=== PATIENT | male | born 1985 | race Caucasian/White ===

== ENCOUNTER 2023-03-10 05:46 | Outpatient (CLI) | payer BC, SELFPAY | END 2023-03-10 05:47 | disposition home or self-care (01) | LOC: AMB 03-11 18:38 | PROVIDERS: Visit Provider Family Medicine | DX: R10.9 Unspecified abdominal pain (principal) | CPT/HCPCS: A0425; A0427 ==

== ENCOUNTER 2023-03-10 06:13 | Inpatient (IN) | payer BC, SELFPAY ==
[2023-03-10] VITALS (27 sets, daily range): BP systolic 131–142; BP diastolic 83–101; PULSE 58–104; RESP 16–20; TEMP 36.7–37.1; O2SAT 91–100; BMI 27.5; BMI 28.4
--- NOTE | 2023-03-10 06:30 | CRLHL7_ITS ---
For Patients: As a result of the Century Cures Act, medical imaging exams and procedure reports are released immediately into your electronic medical record. You may view this report before your referring provider. If you have questions, please contact your health care provider. INDICATION: ACUTE PERIUMBILICAL ABD PAIN. N/V TECHNIQUE: CT abdomen and pelvis with 79 cc Isovue 370. IV contrast. COMPARISON: None. FINDINGS: The liver is normal in size, shape and attenuation. Cholelithiasis noted. No CBD dilatation. Mild intrahepatic biliary duct dilation. The spleen and adrenal glands are within normal limits. The kidneys are unremarkable. No hydronephrosis. Mild diffuse bladder wall thickening. Moderate to severe peripancreatic inflammation surrounding the majority of the pancreas, compatible with acute pancreatitis. No discrete evidence of hypoenhancing pancreatic parenchymal tissue. Inflammation/fluid surrounding the proximal duodenum and greater curvature of the stomach which likely relates to acute pancreatitis inflammatory fluid. No evidence of rim enhancing fluid collection. No evidence of bowel obstruction. Unremarkable appearing appendix. No evidence of free air. Pelvic organs are unremarkable. The lower chest is unremarkable. IMPRESSION: Moderate to severe peripancreatic inflammation surrounding the majority of the pancreas, compatible with acute pancreatitis. No discrete evidence of hypoenhancing pancreatic parenchymal tissue. Inflammation/fluid surrounding the proximal duodenum and greater curvature of the stomach which likely relates to acute pancreatitis inflammatory fluid. No evidence of rim enhancing fluid collection. Cholelithiasis noted. No CBD dilatation. Mild intrahepatic biliary duct dilation. If there is clinical concern for choledocholithiasis consider MRCP. Mild bladder wall thickening. Recommend correlation with urinalysis if there is concern for cystitis. Please note that all CT scans at this facility use dose modulation, iterative reconstruction, and/or weight-based dosing when appropriate to reduce radiation dose to as low as reasonably achievable. Dictated by Lm Cristina MD @ 03/10/2023 7:32:47 AM (Electronically Signed)
--- NOTE | 2023-03-10 06:36 | ED_ITS ---
HPI - Abdominal Pain General Time Seen by Provider: 06:36 Date Seen: 03/10/23 Chief Complaint: Abdominal Pain Stated Complaint: Vomiting Time Seen by Provider: 03/10/23 07:03 Source: patient and RN notes reviewed Mode of arrival: ambulatory Limitations: no limitations History of Present Illness HPI narrative: Waylon is a very pleasant 37-year-old male previously healthy who comes to the emergency room for evaluation of abdominal pain. Patient notes that he did not feel well last night but did go to bed. He awoke with abdominal pain in the middle of the night that has become increasingly worse. Seems to be around his periumbilical area. He denies that it radiates to the back into the scrotum or anywhere else. He notes that the pain is so intense that he broke out into a sweat and even had an episode of vomiting. This is never happened to him before. He denies diarrhea or constipation or history of abdominal surgeries. He has not had any ill contacts. Denies bulging or hernia like symptoms in the past. EMS was called and patient did receive 50 of fentanyl and Zofran. He notes that the pain is mildly improved. With the exception of mother having a history of pancreatitis, no other relatives have GI issues. Related Data Allergies Allergy/AdvReac Type Severity Reaction Status Date / Time amphetamine [From Adderall] Allergy Verified 03/10/23 07:14 dextroamphetamine Allergy Verified 03/10/23 07:14 [From Adderall] Review of Systems Status of ROS Reports: 10 or more systems reviewed and unremarkable except as noted in History and below Const Denies: fever, chills, change in weight or fatigue ENMT Denies: difficulty swallowing Cardio Denies: chest pain, swelling of feet/ankles, lightheadedness or shortness of breath with exertion Resp Denies: shortness of breath or cough GI Reports: abdominal pain, nausea and vomiting; Denies: diarrhea, constipation, difficulty swallowing or blood in stool Denies: painful urination, urinary frequency, urinary urgency or blood in urine Musculo Denies: back pain or extremity pain Neuro Denies: weakness in extremities Endo Denies: fatigue PFSH PFSH Social History Smoking Status: Former smoker Do you use any of these nicotine containing products: None Second hand tobacco smoke exposure: No How often do you have a drink containing alcohol: 2-3 times a week AUDIT-C Alcohol total score: 3 Non-prescribed substance use: marijuana (any form) Exam Narrative: Exam Narrative: Alert and oriented. Diaphoretic at this time. Very guarded in movement. Moderate distress. Heart with bradycardic rate and normal rhythm. Lungs are clear. Abdomen is with absent bowel sounds. Abdomen is tender in the periumbilical area. Abdomen is firm in this area. No pain with palpation over right lower quadrant right upper quadrant. No evidence of bulging in the umbilicus or groin. Const: Vital Signs, click to edit/add: Vital Signs - 24 hr 03/10/23 06:18 03/10/23 06:41 03/10/23 06:45 Temperature 98.8 F Pulse Rate 72 76 Pulse Rate [Left P ulse Oximeter] 58 L Respiratory Rate 18 Blood Pressure Blood Pressure [Ri ght Upper Arm] 142/101 H Pulse Oximetry 100 98 99 Oxygen Delivery Me thod Room Air 03/10/23 07:09 03/10/23 07:15 03/10/23 07:30 Temperature Pulse Rate 76 72 77 Pulse Rate [Left P ulse Oximeter] Respiratory Rate Blood Pressure Blood Pressure [Ri ght Upper Arm] Pulse Oximetry 99 98 95 Oxygen Delivery Me thod 03/10/23 07:45 03/10/23 07:54 03/10/23 08:00 Temperature Pulse Rate 79 73 74 Pulse Rate [Left P ulse Oximeter] Respiratory Rate Blood Pressure 134/95 H Blood Pressure [Ri ght Upper Arm] Pulse Oximetry 96 98 96 Oxygen Delivery Me thod 03/10/23 08:01 03/10/23 08:15 Temperature Pulse Rate 79 81 Pulse Rate [Left P ulse Oximeter] Respiratory Rate Blood Pressure 139/93 H Blood Pressure [Ri ght Upper Arm] Pulse Oximetry 97 96 Oxygen Delivery Me thod Documenting provider has reviewed patient's vital signs: yes Course Course ED Course: Differential diagnosis includes but is not limited to small-bowel obstruction, incarcerated hernia, enteritis, ileus, appendicitis, Patient will undergo abdominal CT with contrast as well as lab draw to include CBC, comprehensive, lactate, CRP. Reevaluation(s) Reevaluation #1: Patient had increasing abdominal pain and thus Dilaudid 0.5 mg IV is given with good pain relief. Vital Signs Vital signs: Initial Vital Signs Temperature 98.8 F 03/10/23 06:18 Temperature Source Oral 03/10/23 06:18 Pulse Rate 58 L 03/10/23 06:18 Respiratory Rate 18 03/10/23 06:18 Blood Pressure 142/101 H 03/10/23 06:18 Blood Pressure Mean 114 H 03/10/23 06:18 Blood Pressure Position Sitting 03/10/23 06:18 Pulse Oximetry 100 03/10/23 06:18 Oxygen Delivery Method Room Air 03/10/23 06:18 Vital Signs Temperature 98.8 F 03/10/23 06:18 Pulse Rate 58 L 03/10/23 06:18 Respiratory Rate 18 03/10/23 06:18 Blood Pressure 142/101 H 03/10/23 06:18 Pulse Oximetry 100 03/10/23 06:18 Oxygen Delivery Method Room Air 03/10/23 06:18 Temperature 98.8 F 03/10/23 06:18 Pulse Rate 81 03/10/23 08:15 Respiratory Rate 18 03/10/23 06:18 Blood Pressure 139/93 H 03/10/23 08:01 Pulse Oximetry 96 03/10/23 08:15 Oxygen Delivery Method Room Air 03/10/23 06:18 MDM - Abdominal Pain MDM Narrative Medical decision making narrative: 1. Pancreatitis-patient noted to have CT confirmed pancreatitis in the setting of elevated liver function test. Patient's pain improved at this time on Dilaudid. He is also received 1 L of normal saline and a 2 L will be ordered at this time. Ultrasound pending to ascertain appearance of common bile duct gallbladder and cystic duct. If reassuring patient will be admitted to [facility]. If evidence of common bile duct stone patient will need to be referred to tertiary care for ERCP. Patient has no history of significant alcohol use known cholelithiasis or history of pancreatitis. His mother reports that she had idiopathic pancreatitis that was significant and caused her multiple and prolonged hospitalizations. 2. Hyperkalemia 5.8: At this time I suspect hemolysis and I am asking lab to come and draw a 2nd sample. 2. Disposition-this patient will be signed out to my partner Dr. Meng for review of ultrasound report and disposition. Medical Records Medical records narrative: No records available for review Lab Data Attestation: I reviewed the patient's lab results. Labs: Lab Results 03/10/23 03/10/23 Range/Units 06:37 08:20 WBC 13.79 H (4.50-11.00) K/uL RBC 5.33 (4.30-5.90) m/uL Hgb 16.5 (13.5-17.5) gm/dL Hct 48.6 (37.0-53.0) % MCV 91 (80-100) fL MCH 31 (26-34) pg MCHC 34 (32-36) gm/dL RDW Coeff of Vicky 12.2 (11.5-15.5) % Plt Count 244 (140-440) K/uL Neut % (Auto) 79.5 H (42.0-72.0) % Lymph % (Auto) 12.0 L (20-44) % [place] % (Auto) 6.7 (0.0-11.0) % Eos % (Auto) 0.9 (0.0-7.0) % Baso % (Auto) 0.1 (0.0-3.0) % Neut # (Auto) 11.00 H (1.7-7.0) K/uL Lymph # (Auto) 1.70 (0.90-2.90) K/uL [place] # (Auto) 0.90 (0.00-0.90) K/UL Eos # (Auto) 0.10 (0.00-0.50) K/uL Baso # (Auto) 0.00 (0.00-0.30) K/uL Abs Immat Gran (auto) 0.10 (0.00-0.30) K/uL Imm/Tot Granulo (auto) 0.8 % Sodium 140 (135-149) mmol/L Potassium 5.8 H (3.6-5.1) mmol/L Chloride 105 (96-114) mmol/L Carbon Dioxide 28 (20-32) mmol/L Anion Gap 7 (7-15) mEq/L BUN 20 (5-24) mg/dL Creatinine 1.0 (0.5-1.5) mg/dL Estimated Creat Clear 84.69 Estimated GFR 99 ml/min Glucose 167 H (60-115) mg/dL Lactate 1.4 (0.5-1.9) mmol/L Calcium 9.9 (8.4-10.6) mg/dL Total Bilirubin 2.5 H (0.1-1.5) mg/dL AST 863 H (12-35) U/L ALT 623 H (4-50) U/L Alkaline Phosphatase 130 (40-150) U/L C-Reactive Protein 0.8 (0.5-1.0) mg/dL Total Protein 7.3 (6.0-8.3) g/dL Albumin 4.3 (3.3-5.0) g/dL Urine Color Yellow (Yellow) Urine Appearance Clear (Clear) Urine pH 8.0 (5.0-8.5) Ur Specific [place] 1.015 (1.000-1.030) Urine Protein Negative (Negative) Urine Glucose (UA) Negative (Negative) Urine Ketones Negative (Negative) Urine Blood Negative (Negative) Urine Nitrite Negative (Negative) Urine Bilirubin Negative (Negative) Urine Urobilinogen 0.2 (0.2-1.0) Ur Leukocyte Esterase Negative (Negative) Urine RBC 0-2 (0-2) Urine WBC 0-2 (0-5) Ur Squamous Epith Cells None (None-Few) Urine Bacteria None (None) Imaging Data CT scan - abdomen: Attestation: I have reviewed the pertinent imaging results. Discharge Plan Discharge Follow Up/Referrals: Provider,Not a Local [Primary Care Provider] -
[2023-03-10] MEDS: 0.9 % SODIUM CHLORIDE 1000 ml 1,000 ML IV ×2 (06:38→08:57)
[2023-03-10 06:41] LABS: Lactate* 1.4 mmol/L (0.5-1.9)
[2023-03-10 06:48] LABS: Basophils Percent Auto 0.1 % (0.0-3.0); Eosinophils Percent Auto 0.9 % (0.0-7.0); Hematocrit 48.6 % (37.0-53.0); Hemoglobin* 16.5 gm/dL (13.5-17.5); Immature Granulocytes Pct Auto 0.8 %; Mean Corpuscular HGB Conc 34 gm/dL (32-36); Mean Corpuscular Hemoglobin 31 pg (26-34); Mean Corpuscular Volume 91 fL (80-100); Monocytes Percent Auto 6.7 % (0.0-11.0); Neutrophils Percent Auto 79.5 % (42.0-72.0); Platelet Count* 244 K/uL (140-440); RDW Coefficient of Variation % 12.2 % (11.5-15.5); Red Blood Count 5.33 m/uL (4.30-5.90); White Blood Count* 13.79 K/uL (4.50-11.00)
[2023-03-10 06:56] LABS: Slide Review Reflex No
[2023-03-10 07:21] LABS: Albumin* 4.3 g/dL (3.3-5.0); Chloride* 105 mmol/L (96-114); Sodium* 140 mmol/L (135-149)
[2023-03-10 07:22] LABS: Potassium* 5.8 mmol/L (3.6-5.1)
[2023-03-10 07:24] LABS: Bilirubin Total* 2.5 mg/dL (0.1-1.5); Est. Creatinine Clearance* 84.69; Estimated Glomerular Filt Rate 99 ml/min
[2023-03-10 07:25] LABS: Alanine Aminotransferase* 623 U/L (4-50); Alkaline Phosphatase* 130 U/L (40-150); Blood Urea Nitrogen* 20 mg/dL (5-24); Calcium* 9.9 mg/dL (8.4-10.6); Carbon Dioxide* 28 mmol/L (20-32); Glucose* 167 mg/dL (60-115); Total Protein* 7.3 g/dL (6.0-8.3)
[2023-03-10] MEDS: HYDROmorphone 0.5 mg/0.5 ml inj IVP ×8 (07:25→21:42)
[2023-03-10 07:27] LABS: C Reactive Protein* 0.8 mg/dL (0.5-1.0)
[2023-03-10 07:32] LABS: Anion Gap 7 mEq/L (7-15); Aspartate Amino Transferase* 863 U/L (12-35)
--- NOTE | 2023-03-10 08:04 | ED.NURSE ---
patient is feeling better after having pain medication rated at 5/10 scale and is wanting to rest. patient stated pain is center of abdomen and feels a little bloated/distended. had a bowel movement this am and was normal for patient with little straining otherwise not a problem.
--- NOTE | 2023-03-10 08:17 | CRLHL7_ITS ---
For Patients: As a result of the Century Cures Act, medical imaging exams and procedure reports are released immediately into your electronic medical record. You may view this report before your referring provider. If you have questions, please contact your health care provider. INDICATION: PANCREATITIS, ELEVATED LFTS AND BILIRUBIN TECHNIQUE: Ultrasound abdomen limited. Sonographic images of the right upper quadrant were obtained using barragan-scale and color Doppler images. COMPARISON: Same-day CT abdomen pelvis. FINDINGS: Liver: Normal in size and echotexture. No suspicious masses. No intrahepatic biliary dilatation. Gallbladder: Cholelithiasis noted. The gallbladder wall is edematous and thickened measuring 0.5 cm. Positive ultrasonographic Bergman`s sign. Common bile duct: 5 mm. Pancreas: Pancreatic parenchyma appears edematous. Right kidney: Normal in size. Normal echotexture and cortex. No suspicious masses, stones, or hydronephrosis. Vasculature: Proximal abdominal aorta and IVC are unremarkable. IMPRESSION: 1. Pancreatic parenchyma appears edematous, compatible with acute pancreatitis better seen on same day CT. 2. Cholelithiasis noted. The gallbladder wall is edematous and thickened measuring 0.5 cm. Positive ultrasonographic Bergman`s sign. The findings may be reactive from adjacent pancreatitis but overall findings are concerning for acute cholecystitis. 3. No CBD dilatation. If there is concern for choledocholithiasis consider MRCP/ERCP. Dictated by Lm Cristina MD @ 03/10/2023 9:27:01 AM (Electronically Signed)
[2023-03-10 08:31] LABS: Appearance Urine Clear (Clear); Bilirubin Urine Negative (Negative); Blood Urine Negative (Negative); Color Urine Yellow (Yellow); Glucose Urine Negative (Negative); Ketones Urine Negative (Negative); Leukocyte Esterase Urine Negative (Negative); Nitrite Urine Negative (Negative); Protein Urine Negative (Negative); Specific Gravity Urine 1.015 (1.000-1.030); Urobilinogen Urine 0.2 (0.2-1.0)
[2023-03-10 08:40] LABS: RBC Urine 0-2 (0-2); WBC Urine 0-2 (0-5)
[2023-03-10 09:46] LABS: Potassium* 3.8 mmol/L (3.6-5.1)
--- NOTE | 2023-03-10 11:05 | ED.NURSE ---
report given to ernie BURGESS.
[2023-03-10 11:10] LABS: Lactate* 0.8 mmol/L (0.5-1.9)
[2023-03-10 11:26] LABS: Potassium* 4.3 mmol/L (3.6-5.1)
[2023-03-10 11:29] LABS: Bilirubin Direct* 0.1 mg/dL (0.0-0.5)
[2023-03-10] MEDS: LACTATED RINGERS 1000 ML 1,000 ML 125 ML IV ×2 (12:00→21:39)
--- NOTE | 2023-03-10 13:25 | PM.IMHP1 ---
Hospitalist- H&P: HPI History of Present Illness Time Seen by Provider: 11:30 Date Seen: 03/10/23 Chief complaint: Vomiting, abdominal pain Narrative: Waylon Lackey is a 37 year old man with steadily worsening abdominal pain since 7:00 p.m. 03/09/2023. Was able to sleep much of the night. By 4-5 in the morning on 03/10/2023 his complaint of abdominal pain is so extreme that he has not slept since, localizing his pain in epigastrium, nonradiating, associated with nausea and vomiting, profuse diaphoresis, no blood loss of any sort, no fevers or rigors. Denies jaundice or icterus. Normal bowel movements. No diarrhea. Denies dysuria, urgency, frequency, hematuria. No recent trauma or injury. Denies chest heaviness, pressure, tightness, or pain. Denies heartburn, dyspepsia, dysphagia, or odynophagia. Denies cough, dyspnea at rest, paroxysmal nocturnal dyspnea, orthopnea. Denies palpitation or chest fluttering. Denies syncope or near-syncope. Denies orthostasis, lightheadedness, vertigo. Denies any focal motor neurologic deficits. Denies hypoglycemic or hyperglycemic symptoms. Does not have diabetes. Drinks alcoholic beverages maybe 2-3 times per week. Does use marijuana periodically. History of tobacco smoking, no longer uses. Does not and has not used any corticosteroids. Review of Systems Status of ROS: Reports: 10 or more systems reviewed and unremarkable except as noted in History and below [facility] Medical History Marijuana use ?F12.90 - Cannabis use, unspecified, uncomplicated (ICD-10) History of tobacco use ?Z87.891 - Personal history of nicotine dependence (ICD-10) Attention deficit hyperactivity disorder (ADHD) ?F90.9 - Attention-deficit hyperactivity disorder, unspecified type (ICD-10) Social History Smoking Status: Former smoker Do you use any of these nicotine containing products: None Second hand tobacco smoke exposure: No How often do you have a drink containing alcohol: 2-3 times a week AUDIT-C Alcohol total score: 3 Non-prescribed substance use: marijuana (any form) Meds Home Medications and Allergies Home Medications Medication Instructions Recorded Confirmed Type cetirizine 10 mg tablet (24Hour 10 mg PO HS 03/10/23 03/10/23 History Allergy) loratadine 10 mg tablet 10 mg PO DAILY 03/10/23 03/10/23 History (Allerclear) methylphenidate HCl 36 mg 36 mg PO DAILY 03/10/23 03/10/23 History tablet,extended release 24 hr (Concerta) Allergies Allergy/AdvReac Type Severity Reaction Status Date / Time amphetamine [From Adderall] Allergy Verified 03/10/23 07:14 dextroamphetamine Allergy Verified 03/10/23 07:14 [From Adderall] Exam Narrative: Exam Narrative: I examined patient in his hospital room. By the time I see him he appears comfortable and in no acute distress. Vision and hearing are grossly normal. Alert and oriented to self, place, time, situation. Friendly, articulate, cooperative. No jaundice or icterus. No petechiae. Midline nasal septum. Dry buccal mucosa. Dentition in fair repair. Neck supple. Midline trachea. Normal thyroid. No JVD hepatojugular reflux. No head or neck lymphadenopathy. Lungs clear to auscultation without wheezing, rhonchi, or rales. Chest wall excursions are full. No CVA tenderness. Heart tones with regular rhythm, normal S1-S2, without murmur, gallop, or rub. PMI not laterally displaced. Abdomen with active bowel sounds, soft. Subjective discomfort to palpation over epigastrium. No guarding. Palpable pulses upper and lower extremities. No lower extremity edema. Capillary refill less than 3 seconds. Moves all 4 extremities. Independent transfer, station, and gait. Const: Vital Signs, click to edit/add: Vital Signs - 24 hr 03/10/23 06:18 03/10/23 06:41 03/10/23 06:45 Temperature 98.8 F Pulse Rate 72 76 Pulse Rate [Left P ulse Oximeter] 58 L Respiratory Rate 18 Blood Pressure Blood Pressure [Ri ght Upper Arm] 142/101 H Pulse Oximetry 100 98 99 Oxygen Delivery Me thod Room Air 03/10/23 07:09 03/10/23 07:15 03/10/23 07:30 Temperature Pulse Rate 76 72 77 Pulse Rate [Left P ulse Oximeter] Respiratory Rate Blood Pressure Blood Pressure [Ri ght Upper Arm] Pulse Oximetry 99 98 95 Oxygen Delivery Me thod 03/10/23 07:45 03/10/23 07:54 03/10/23 08:00 Temperature Pulse Rate 79 73 74 Pulse Rate [Left P ulse Oximeter] Respiratory Rate Blood Pressure 134/95 H Blood Pressure [Ri ght Upper Arm] Pulse Oximetry 96 98 96 Oxygen Delivery Me thod 03/10/23 08:01 03/10/23 08:15 03/10/23 08:49 Temperature Pulse Rate 79 81 71 Pulse Rate [Left P ulse Oximeter] Respiratory Rate Blood Pressure 139/93 H Blood Pressure [Ri ght Upper Arm] Pulse Oximetry 97 96 Oxygen Delivery Me thod 03/10/23 09:00 03/10/23 09:01 03/10/23 09:15 Temperature Pulse Rate 90 86 80 Pulse Rate [Left P ulse Oximeter] Respiratory Rate Blood Pressure 137/90 H Blood Pressure [Ri ght Upper Arm] Pulse Oximetry 96 96 97 Oxygen Delivery Me thod 03/10/23 09:30 03/10/23 09:31 03/10/23 09:45 Temperature Pulse Rate 81 76 97 Pulse Rate [Left P ulse Oximeter] Respiratory Rate Blood Pressure 142/94 H Blood Pressure [Ri ght Upper Arm] Pulse Oximetry 96 97 96 Oxygen Delivery Me thod 03/10/23 10:00 03/10/23 10:01 03/10/23 10:15 Temperature Pulse Rate 84 95 94 Pulse Rate [Left P ulse Oximeter] Respiratory Rate Blood Pressure 141/96 H Blood Pressure [Ri ght Upper Arm] Pulse Oximetry 97 97 97 Oxygen Delivery Me thod 03/10/23 10:26 03/10/23 10:28 Temperature 98.1 F Pulse Rate Pulse Rate [Left P ulse Oximeter] Respiratory Rate 20 Blood Pressure Blood Pressure [Ri ght Upper Arm] Pulse Oximetry Oxygen Delivery Me thod Documenting provider has reviewed patient's vital signs: yes Hospitalist - H&P: Result Labs Labs: Short CBC 03/10/23 Range/Units 06:37 WBC 13.79 H (4.50-11.00) K/uL Hgb 16.5 (13.5-17.5) gm/dL Hct 48.6 (37.0-53.0) % Plt Count 244 (140-440) K/uL BMP 03/10/23 03/10/23 03/10/23 06:37 09:25 10:54 Sodium 140 Potassium 5.8 H 3.8 4.3 Chloride 105 Carbon Dioxide 28 BUN 20 Creatinine 1.0 Glucose 167 H Calcium 9.9 Liver Function 03/10/23 03/10/23 Range/Units 06:37 10:54 Total Bilirubin 2.5 H (0.1-1.5) mg/dL Direct Bilirubin 0.1 (0.0-0.5) mg/dL AST 863 H (12-35) U/L ALT 623 H (4-50) U/L Alkaline Phosphatase 130 (40-150) U/L Albumin 4.3 (3.3-5.0) g/dL Urine 03/10/23 Range/Units 08:20 Urine Color Yellow (Yellow) Urine Appearance Clear (Clear) Urine pH 8.0 (5.0-8.5) Ur Specific [place] 1.015 (1.000-1.030) Urine Protein Negative (Negative) Urine Glucose (UA) Negative (Negative) Imaging CT scan of abdomen and pelvis: Attestation: I have reviewed the pertinent imaging results. Radiologist's impression: IMPRESSION: Moderate to severe peripancreatic inflammation surrounding the majority of the pancreas, compatible with acute pancreatitis. No discrete evidence of hypoenhancing pancreatic parenchymal tissue. Inflammation/fluid surrounding the proximal duodenum and greater curvature of the stomach which likely relates to acute pancreatitis inflammatory fluid. No evidence of rim enhancing fluid collection. Cholelithiasis noted. No CBD dilatation. Mild intrahepatic biliary duct dilation. If there is clinical concern for choledocholithiasis consider MRCP. Mild bladder wall thickening. Recommend correlation with urinalysis if there is concern for cystitis. US - abdomen: Attestation: I have reviewed the pertinent imaging results. Radiologist's impression: IMPRESSION: 1. Pancreatic parenchyma appears edematous, compatible with acute pancreatitis better seen on same day CT. 2. Cholelithiasis noted. The gallbladder wall is edematous and thickened measuring 0.5 cm. Positive ultrasonographic Bergman`s sign. The findings may be reactive from adjacent pancreatitis but overall findings are concerning for acute cholecystitis. 3. No CBD dilatation. If there is concern for choledocholithiasis consider MRCP/ERCP. Assessment and Plan Assessment and plan (1) Acute gallstone pancreatitis: Status: Acute (2) Acute cholecystitis due to biliary calculus: Status: Acute (3) Dehydration: Status: Acute (4) Attention deficit hyperactivity disorder (ADHD): Status: Acute Plan 1. Reviewed impression with patient 2. Discuss with our emergency department physician who saw the patient 3. Will consult General surgery, whom our emergency department physician already spoke with 4. Admit for inpatient care 5. Conservative management for now, including NPO status, IV fluids, as needed analgesics, as needed antiemetics 6. Continue with his once daily dosing of methylphenidate (Concerta) 7. Monitor physiologic parameters and labs 8. Answered his questions to satisfaction. His father, mother, and stepfather are in the room when I speak with the patient. Patient asked that I speak with them as well. I update them. Answered their questions. All are satisfied. 9. Proceed as specified
[2023-03-10] MEDS: PIPERACILLIN/TAZOBACTAM 3.375 GM in 0.9 % SODIUM CHLORIDE Mini-bag 100 ML IVPB ×2 (13:41→19:09)
[2023-03-10] MEDS: PANTOPRAZOLE SODIUM 40 MG INJ IVP (13:49)
--- NOTE | 2023-03-10 15:36 | PC.NURSE ---
Patient up to the floor at 1110 accompanied by his parents. Patient is alert and oriented x4. C/o abd pain, rates this pain /. PRN dilauded administered w/relief see eMar. IV in left AC patent w/fluids running at 125 mls/hr. Patient is currently NPO. Patient ambulates independently to BR, cont of both bowels and bladder. LS clear to auscultation. VSS, patient is 98% on RA.
[2023-03-10] MEDS: OXYCODONE 5 MG TABLET PO (17:45)
[2023-03-10] MEDS: ONDANSETRON 2 MG/ML inj 4 MG IVP (19:03)
--- NOTE | 2023-03-10 19:47 | PC.NURSE ---
Patient alert and oriented. Ambulating in room independently. NPO at this time. Taking ice chips and sips of water with meds. Patient has rated pain in abdomen 5-8/10. Reported nausea and abdominal pain; was given PRN Dilaudid, PRN Zofran and an anti-nausea aromatherapy patch at this time.
[2023-03-10] MEDS: CETIRIZINE HCL 10 MG TABLET PO (21:42)
[2023-03-10] MEDS: SODIUM CHLORIDE 0.9 % (FLUSH) 10 ML SYRINGE 5 ML IVF (21:44)
[2023-03-10] MEDS: MELATONIN 3 MG TABLET PO (22:29)
[2023-03-11] VITALS (10 sets, daily range): BP systolic 131–156; BP diastolic 87–102; PULSE 98–123; RESP 16–20; TEMP 36.6–37.6; O2SAT 90–95
[2023-03-11] MEDS: PIPERACILLIN/TAZOBACTAM 3.375 GM in 0.9 % SODIUM CHLORIDE Mini-bag 100 ML IVPB ×4 (01:15→19:14)
[2023-03-11] MEDS: HYDROmorphone 0.5 mg/0.5 ml inj IVP ×4 (02:37→17:54)
[2023-03-11] MEDS: SODIUM CHLORIDE 0.9 % (FLUSH) 10 ML SYRINGE 5 ML IVF ×2 (02:38→09:29)
[2023-03-11] MEDS: OXYCODONE 5 MG TABLET PO ×3 (05:59→19:41)
[2023-03-11] MEDS: LACTATED RINGERS 1000 ML 1,000 ML 125 ML IV ×3 (06:01→20:33)
[2023-03-11 06:33] LABS: HCO3 VBG 26 mmol/L (21-28); PCO2 VBG 43 mmHG (40-50); PO2 VBG 42.2 mmHG (25-47); pH VBG 7.394 (7.32-7.43)
[2023-03-11 06:38] LABS: Basophils Percent Auto 0.1 % (0.0-3.0); Eosinophils Percent Auto 0.3 % (0.0-7.0); Hematocrit 45.5 % (37.0-53.0); Hemoglobin* 15.1 gm/dL (13.5-17.5); Immature Granulocytes Pct Auto 0.3 %; Lymphocytes Percent Auto 10.4 % (20-44); Mean Corpuscular HGB Conc 33 gm/dL (32-36); Mean Corpuscular Hemoglobin 31 pg (26-34); Mean Corpuscular Volume 93 fL (80-100); Monocytes Percent Auto 7.4 % (0.0-11.0); Neutrophils Percent Auto 81.5 % (42.0-72.0); Platelet Count* 213 K/uL (140-440); RDW Coefficient of Variation % 12.4 % (11.5-15.5); Red Blood Count 4.89 m/uL (4.30-5.90); White Blood Count* 11.77 K/uL (4.50-11.00)
[2023-03-11 06:50] LABS: Slide Review Reflex No
--- NOTE | 2023-03-11 06:58 | PC.NURSE ---
Shift note: Pt has been maintained on NPO. Complained of feeling nauseated at the start of the shift at 1900 and Zofran given. Has remained stable since except pain control. Pain level has been rated between 7 and 9. Deluded and oxycodone given to manage pain. Pt had concentrated urine (tea colored) about 550ml this morning. Alert and oriented. No fever noted. Pt had adequate sleep.
[2023-03-11 07:38] LABS: Albumin* 3.5 g/dL (3.3-5.0); Chloride* 106 mmol/L (96-114)
[2023-03-11 07:39] LABS: Sodium* 137 mmol/L (135-149)
[2023-03-11 07:40] LABS: Potassium* 4.1 mmol/L (3.6-5.1)
[2023-03-11 07:41] LABS: Creatinine* 0.8 mg/dL (0.5-1.5); Est. Creatinine Clearance* 105.86; Estimated Glomerular Filt Rate 117 ml/min
[2023-03-11 07:42] LABS: Alanine Aminotransferase* 321 U/L (4-50); Alkaline Phosphatase* 96 U/L (40-150); Anion Gap 8 mEq/L (7-15); Aspartate Amino Transferase* 164 U/L (12-35); Bilirubin Total* 1.8 mg/dL (0.1-1.5); Blood Urea Nitrogen* 12 mg/dL (5-24); Calcium* 8.9 mg/dL (8.4-10.6); Carbon Dioxide* 23 mmol/L (20-32); Cholesterol* 124 mg/dL (90-199); Glucose* 93 mg/dL (60-115); Phosphorus* 3.6 mg/dL (2.5-4.5); Total Protein* 6.3 g/dL (6.0-8.3); Triglycerides* 61 mg/dL (40-149)
[2023-03-11 07:43] LABS: HDL Cholesterol* 54 mg/dL (>=40); LDL Cholesterol Calculated 58 mg/dL (<100); Magnesium* 1.8 mg/dL (1.5-2.6)
[2023-03-11 07:45] LABS: C Reactive Protein* 6.8 mg/dL (0.5-1.0)
[2023-03-11 07:54] LABS: Lipase* 3452 U/L (23-300)
[2023-03-11] MEDS: PANTOPRAZOLE SODIUM 40 MG INJ IVP (09:28)
--- NOTE | 2023-03-11 15:16 | P.GSCN_ITS ---
History of Present Illness Consult details Date Seen: 03/11/23 Consult date: 03/11/23 Narrative: 37-year-old male was admitted to the hospital with pancreatitis and I was asked by Dr. Arriaga to see him in consultation. Patient states that night he developed periumbilical abdominal pain. He described it as stomach cramping. He took Tums but that did not help his pain. His pain was getting progressively worse and in the morning on Monday he asked his girlfriend to bring him to the hospital. patient had nausea and vomiting. He was not passing gas. Upon his workup he was found to have an elevated WBC of 13. His total bilirubin was 2.5 with direct bilirubin being normal. He had greatly elevated lipase at 60,835 with elevated AST and ALT of 863 and [address] An [address] CT was obtained that showed cholelithiasis with mild intrahepatic bile dilatation. His common bile duct was that to be normal. There was moderate to severe [place] pancreatic inflammation with some inflammation Near the duodenum and greater curvature of the stomach. Patient then had a gallbladder ultrasound that showed cholelithiasis with gallbladder wall of 5 mm. His common bile duct was normal at 5 mm. On this ultrasound there was no evidence of intrahepatic bile dilatation. Patient was admitted to the hospital. patient states that his pain has improved significantly compared to yesterday. He denies nausea or vomiting. Patient admits to drinking 9-10 alcoholic drinks per week on average. Review of Systems Narrative: General: no fevers HENT: no problems swallowing CV: difficult to take a deep breath due to pain. Resp: no cough GI: See above : no dysuria, no increased urinary frequency, no hematuria Psyche: History of ADHD [facility] Medical History (Updated 03/11/23 @ 15:21 by Danny Irizarry MD) Broken nose ?S02.2XXA - Fracture of nasal bones, initial encounter for closed fracture (ICD-10) Marijuana use ?F12.90 - Cannabis use, unspecified, uncomplicated (ICD-10) History of tobacco use ?Z87.891 - Personal history of nicotine dependence (ICD-10) Attention deficit hyperactivity disorder (ADHD) ?F90.9 - Attention-deficit hyperactivity disorder, unspecified type (ICD-10) Surgical History History of placement of ear tubes ?Z96.22 - Myringotomy tube(s) status (ICD-10) Social History (Updated 03/11/23 @ 15:21 by Danny Irizarry MD) Narrative: patient works in [employer] department and rarely does heavy lifting. What is your current living situation?: I presently have a place to live Problems where you live: no known problems Problems where you live details: no known problems In the past 12 months, utilities in danger of being shut off: no In past 12 months, lack of transportation kept you from medical appts, meetings, work, or getting things needed for daily living: no In the past 12 mos, have been you worried that your food would run out before you had money to buy more?: never true In the past 12 mos, the food you bought just didn't last and you didn't have money to buy more?: never true Highest level of school completed/degree received: some college, no degree Smoking Status: Former smoker Do you use any of these nicotine containing products: None Second hand tobacco smoke exposure: No How often do you have a drink containing alcohol: never AUDIT-C Alcohol total score: 0 Non-prescribed substance use: denies use Caffeine: No How often does anyone, including family, friends and others, physically hurt you : never How often does anyone, including family, friends and others, insult or talk down to you: never How often does anyone, including family, friends and others, threaten you with harm: never How often does anyone, including family, friends and others, scream or curse at you: never service: No Meds Home Medications and Allergies Home Medications Medication Instructions Recorded Confirmed Type cetirizine 10 mg tablet (24Hour 10 mg PO HS 03/10/23 03/10/23 History Allergy) loratadine 10 mg tablet 10 mg PO DAILY 03/10/23 03/10/23 History (Allerclear) methylphenidate HCl 36 mg 36 mg PO DAILY 03/10/23 03/10/23 History tablet,extended release 24 hr (Concerta) Allergies Allergy/AdvReac Type Severity Reaction Status Date / Time amphetamine [From Adderall] Allergy Verified 03/10/23 07:14 dextroamphetamine Allergy Verified 03/10/23 07:14 [From Adderall] Exam Narrative: Exam Narrative: General appearance: Alert, cooperative, and in no distress Pulmonary: Chest symmetric, lungs clear bilaterally Cardiovascular Heart: Regular rate and rhythm, S1, S2, no murmurs/rubs/gallops Gastrointestinal Abdominal: soft, not distended, Mildly tender to palpation in the right lower quadrant and more tender to palpation in epigastrium and right upper quadrant with positive Bergman sign. Skin: Normal skin color, texture, and turgor. No rashes or lesions. Psychiatric: Alert, cooperative, normal affect. Const: Vital Signs, click to edit/add: Vital Signs - 24 hr 03/10/23 19:00 03/10/23 23:00 03/10/23 23:00 Temperature 98.8 F 98.8 F Pulse Rate [Left P ulse Oximeter] 78 103 H Respiratory Rate 16 16 16 Blood Pressure [Ri ght Arm] 142/90 H 133/87 Pulse Oximetry 97 91 91 Oxygen Delivery Me thod Room Air Room Air Room Air 03/11/23 03:00 03/11/23 07:00 Temperature 98.5 F 98.7 F Pulse Rate [Left P ulse Oximeter] 98 98 Respiratory Rate 16 18 Blood Pressure [Ri ght Arm] 131/87 147/93 H Pulse Oximetry 92 94 Oxygen Delivery Me thod Room Air Room Air Results Labs Labs: Abnormal lab results 03/11/23 Range/Units 06:23 WBC 11.77 H (4.50-11.00) K/uL Neut % (Auto) 81.5 H (42.0-72.0) % Lymph % (Auto) 10.4 L (20-44) % Neut # (Auto) 9.60 H (1.7-7.0) K/uL Total Bilirubin 1.8 H (0.1-1.5) mg/dL AST 164 H (12-35) U/L ALT 321 H (4-50) U/L C-Reactive Protein 6.8 H (0.5-1.0) mg/dL Lipase 3452 H (23-300) U/L Diabetes panel 03/11/23 Range/Units 06:23 Sodium 137 (135-149) mmol/L Potassium 4.1 (3.6-5.1) mmol/L Chloride 106 (96-114) mmol/L Carbon Dioxide 23 (20-32) mmol/L BUN 12 (5-24) mg/dL Creatinine 0.8 (0.5-1.5) mg/dL Glucose 93 (60-115) mg/dL Calcium 8.9 (8.4-10.6) mg/dL AST 164 H (12-35) U/L ALT 321 H (4-50) U/L Alkaline Phosphatase 96 (40-150) U/L Total Protein 6.3 (6.0-8.3) g/dL Albumin 3.5 (3.3-5.0) g/dL Triglycerides 61 (40-149) mg/dL HDL Cholesterol 54 (>=40) mg/dL Calcium panel 03/11/23 Range/Units 06:23 Calcium 8.9 (8.4-10.6) mg/dL Phosphorus 3.6 (2.5-4.5) mg/dL Albumin 3.5 (3.3-5.0) g/dL Pituitary panel 03/11/23 Range/Units 06:23 Sodium 137 (135-149) mmol/L Potassium 4.1 (3.6-5.1) mmol/L Chloride 106 (96-114) mmol/L Carbon Dioxide 23 (20-32) mmol/L BUN 12 (5-24) mg/dL Creatinine 0.8 (0.5-1.5) mg/dL Glucose 93 (60-115) mg/dL Calcium 8.9 (8.4-10.6) mg/dL Adrenal panel 03/11/23 Range/Units 06:23 Sodium 137 (135-149) mmol/L Potassium 4.1 (3.6-5.1) mmol/L Chloride 106 (96-114) mmol/L Carbon Dioxide 23 (20-32) mmol/L BUN 12 (5-24) mg/dL Creatinine 0.8 (0.5-1.5) mg/dL Glucose 93 (60-115) mg/dL Calcium 8.9 (8.4-10.6) mg/dL Total Bilirubin 1.8 H (0.1-1.5) mg/dL AST 164 H (12-35) U/L ALT 321 H (4-50) U/L Alkaline Phosphatase 96 (40-150) U/L Total Protein 6.3 (6.0-8.3) g/dL Albumin 3.5 (3.3-5.0) g/dL All other labs normal. Assessment and Plan Assessment and plan (1) Acute cholecystitis due to biliary calculus: Status: Acute (2) Acute gallstone pancreatitis: Status: Acute Plan 37-year-old male admitted to the hospital with acute pancreatitis that is most likely due to gallstone pancreatitis And acute cholecystitis. I discussed with the patient and his mother my clinical findings, his laboratory and imaging findings. We discussed patient's severely elevated lipase and severe inflammation around he has pancreas found on the CT scan. Most of his inflammation is near the body and the tail of the pancreas. Patient's pain has significantly improved, although, on clinical exam he still has tenderness to palpation in epigastrium and right upper quadrant. I think if patient's labs continue to improve with his lipase being close to normal range, I would recommend proceeding with laparoscopic cholecystectomy. The procedure was discussed in detail. The risks associated procedure including infection, bleeding, injury to the common bile duct, injury to intra-abdominal organs, and the need for possible additional procedures were all discussed with the patient, and he agreed to proceed. Patient was asking whether it would be reasonable to discharge home and have surgery done in [place] near his home. I think it would be reasonable if patient continues to improve to send him home on antibiotics, however, it may delay definitive treatment of laparoscopic cholecystectomy. At this time patient would like to plan for laparoscopic cholecystectomy. If he changes his mind and would like to cancel it at the [facility], he will let us know. All questions were answered.
--- NOTE | 2023-03-11 15:32 | P.IMPN_ITS ---
Progress Note: A&P Assessment and plan (1) Acute cholecystitis due to biliary calculus: Problem details: IV antibiotics. If continued to improve plan cholecystectomy tomorrow with Dr. Irizarry Status: Acute (2) Acute gallstone pancreatitis: Problem details: Clinically much better. Continue to assess for common bile duct stone. Status: Acute Plan Continue in hospital for another day with probable surgery tomorrow. Time Spent With Patient Total time spent: Total time spent today is 45 minutes, 30 minutes in coordination of care and discussing with patient, girlfriend, mother, other providers plan of evaluation and management of gallstone pancreatitis and cholecystitis. Patient is from [place] and his considering returning there for surgery but does not think his insurance will cover that. We discussed options for surgery including location. Subjective Date Seen: 03/11/23 Interval history: 37-year-old male hospitalized with onset night of epigastric abdominal pain. Admitted with acute gallstone pancreatitis and acute cholecystitis. Patient reports feeling much better today compared to yesterday. No other significant health problems. Exam Narrative: Exam Narrative: He is alert and appears in no distress. Respirations are clear to auscultation. Cardiovascular: S1, S2, regular rate and rhythm. Abdomen: Bowel sounds are present. Abdomen is soft. He has moderate epigastric tenderness. No mass. Extremities without edema. Const: Vital Signs, click to edit/add: Vital Signs - 24 hr 03/10/23 19:00 03/10/23 23:00 03/10/23 23:00 Temperature 98.8 F 98.8 F Pulse Rate [Left P ulse Oximeter] 78 103 H Respiratory Rate 16 16 16 Blood Pressure [Ri ght Arm] 142/90 H 133/87 Pulse Oximetry 97 91 91 Oxygen Delivery Me thod Room Air Room Air Room Air 03/11/23 03:00 03/11/23 07:00 03/11/23 07:00 Temperature 98.5 F 98.7 F Pulse Rate [Left P ulse Oximeter] 98 98 Respiratory Rate 16 18 18 Blood Pressure [Ri ght Arm] 131/87 147/93 H Pulse Oximetry 92 94 Oxygen Delivery Me thod Room Air Room Air 03/11/23 07:00 03/11/23 11:00 Temperature 99.7 F H Pulse Rate [Left P ulse Oximeter] 109 H Respiratory Rate 18 Blood Pressure [Ri ght Arm] 156/102 H Pulse Oximetry 95 95 Oxygen Delivery Me thod Room Air Room Air Documenting provider has reviewed patient's vital signs: yes Labs Labs: Laboratory Results - last 24 hr 03/11/23 03/11/23 06:23 07:18 WBC 11.77 H RBC 4.89 Hgb 15.1 Hct 45.5 MCV 93 MCH 31 MCHC 33 RDW Coeff of Vicky 12.4 Plt Count 213 Neut % (Auto) 81.5 H Lymph % (Auto) 10.4 L [place] % (Auto) 7.4 Eos % (Auto) 0.3 Baso % (Auto) 0.1 Neut # (Auto) 9.60 H Lymph # (Auto) 1.20 [place] # (Auto) 0.90 Eos # (Auto) 0.00 Baso # (Auto) 0.00 Abs Immat Gran (auto) 0.00 Imm/Tot Granulo (auto) 0.3 VBG pH 7.394 VBG pCO2 43 VBG pO2 42.2 VBG HCO3 26 Sodium 137 Potassium 4.1 Chloride 106 Carbon Dioxide 23 Anion Gap 8 BUN 12 Creatinine 0.8 Estimated Creat Clear 105.86 Estimated GFR 117 Glucose 93 Lactate 1.0 Calcium 8.9 Phosphorus 3.6 Magnesium 1.8 Total Bilirubin 1.8 H Direct Bilirubin 0.0 AST 164 H ALT 321 H Alkaline Phosphatase 96 C-Reactive Protein 6.8 H Total Protein 6.3 Albumin 3.5 Triglycerides 61 Cholesterol 124 LDL Cholesterol, Calc 58 HDL Cholesterol 54 Lipase 3452 H Lab Acknowledgement Test Added
[2023-03-11] MEDS: ACETAMINOPHEN 325 MG TABLET 650 MG PO (15:58)
[2023-03-11] MEDS: LACTATED RINGERS 1000 ML 1,000 ML IV (16:58)
--- NOTE | 2023-03-11 18:56 | PC.NURSE ---
Patient alert and oriented. Ambulated with stand by assist of one. Ice chips given and tolerated well. Patient given PRN Oxycodone x1 and PRN Dilaudid x 3 for pain in his abdomen which was effective. Heart rate was elevated between 120-130 BPM and had low grade fever of 99.7. MD was updated and orders were given for an ECG. ECG shows NSR Tachycardia. Bolus of LR fluids given per MD order. PRN Tylenol was effective for elevated temperature. Recheck HR was 104. Recheck temp was 97.9.
[2023-03-11] MEDS: CETIRIZINE HCL 10 MG TABLET PO (21:06)
[2023-03-12] VITALS (30 sets, daily range): BP systolic 137–166; BP diastolic 82–110; PULSE 83–117; RESP 14–22; TEMP 36.5–37.7; O2SAT 90–97
[2023-03-12] MEDS: PIPERACILLIN/TAZOBACTAM 3.375 GM in 0.9 % SODIUM CHLORIDE Mini-bag 100 ML IVPB ×2 (01:09→07:39)
[2023-03-12] MEDS: OXYCODONE 5 MG TABLET PO (01:12)
--- NOTE | 2023-03-12 05:48 | PC.NURSE ---
Shift note: Pt has been on NPO pending the decision for surgery. Pain level has been minimal compared to yesterday. 1x PRN pain med requested. Cooperate with treatment and care. Vitally stable. Patient had adequate sleep.Independent in room.
[2023-03-12] MEDS: HYDROmorphone 0.5 mg/0.5 ml inj IVP ×3 (07:24→19:08)
[2023-03-12 07:32] LABS: Basophils Percent Auto 0.2 % (0.0-3.0); Eosinophils Percent Auto 0.5 % (0.0-7.0); Hematocrit 43.3 % (37.0-53.0); Hemoglobin* 14.6 gm/dL (13.5-17.5); Immature Granulocytes Pct Auto 0.2 %; Lymphocytes Percent Auto 8.7 % (20-44); Mean Corpuscular HGB Conc 34 gm/dL (32-36); Mean Corpuscular Hemoglobin 31 pg (26-34); Mean Corpuscular Volume 92 fL (80-100); Monocytes Percent Auto 7.3 % (0.0-11.0); Neutrophils Percent Auto 83.1 % (42.0-72.0); Platelet Count* 189 K/uL (140-440); RDW Coefficient of Variation % 11.9 % (11.5-15.5); Red Blood Count 4.73 m/uL (4.30-5.90); White Blood Count* 13.28 K/uL (4.50-11.00)
[2023-03-12 07:34] LABS: Slide Review Reflex No
[2023-03-12 07:47] LABS: Albumin* 3.4 g/dL (3.3-5.0)
[2023-03-12 07:50] LABS: Alkaline Phosphatase* 88 U/L (40-150); Aspartate Amino Transferase* 66 U/L (12-35); Bilirubin Total* 1.8 mg/dL (0.1-1.5); Lipase* 791 U/L (23-300); Total Protein* 6.5 g/dL (6.0-8.3)
[2023-03-12 07:51] LABS: Alanine Aminotransferase* 205 U/L (4-50)
[2023-03-12 08:07] LABS: C Reactive Protein* 23.8 mg/dL (0.5-1.0)
--- NOTE | 2023-03-12 08:41 | P.GSOP_ITS ---
Operative Note Pre-op diagnosis: 1. Gallstone pancreatitis. 2. Acute cholecystitis. Post-op diagnosis: Same Type of Procedure: 1. Laparoscopic cholecystectomy. Indications: 37-year-old male was admitted to the hospital with pancreatitis. Patient presented to emergency room with abdominal pain that was getting significantly more severe. He had nausea and vomiting. Upon his workup he was found to have minimally elevated WBC. His total bilirubin was elevated at 2.5 with normal direct bilirubin. He had transaminitis and lipase of 60,000. On abdominal CT patient had moderate to severe inflammation around the body and the tail of the pancreas with inflammation extending to his duodenum in the greater curvature of the stomach. He was found to have cholelithiasis. A gallbladder ultrasound was then obtained that showed cholelithiasis, gallbladder wall of 5 mm thick with normal common bile duct. Patient was managed conservatively. Clinically his abdominal pain was improving. His liver function tests were trending down and his lipase was trending down with today's value at 791. Given patient's clinical history, gallstone pancreatitis was at the top of differential. With his improving pancreatitis, a laparoscopic cholecystectomy was recommended. The procedure was discussed in detail. The risks associated procedure including infection, bleeding, injury to intra-abdominal organs, and injury to the common bile duct as well as possible need for future ERCP were all discussed with the patient, he agreed to proceed. Procedure Description: After discussing the risks and benefits of the procedure, the patient signed informed consent.? The operative site was marked and the patient was brought to the operating room and placed on the operating table in supine position.? Care was taken to pad the patient's pressure points.?? The patient was then intubated by anesthesia.?? The operative site was then prepped and draped in the usual sterile fashion.? A time-out was then performed. A 5-mm laparoscopy port was placed in the left upper quadrant guided by a 5-mm laparoscope placed into a translucent trochar.~ Passage through the layers of the abdominal wall was visualized with the laparoscope.~ A pneumoperitoneum was established. A 0-degree 5-mm laparoscope was advanced into the abdomen. The abdomen was briefly surveyed, and no adhesions were noted. A 10-mm port were placed supraumbilically and two more 5 mm ports were placed on the right under direct visualization by laparoscope. The camera was then changed to 10 mm 30- degree scope and placed into the abdomen through the 10 mm port. The left upper quadrant port entrance was examined and no injury to intra-abdominal organs was identified. The gallbladder was identified, the fundus grasped and retracted cephalad. Omentum was adherent to the gallbladder fundus and those omental adhesions were taken down with cautery. The infundibulum was grasped and retracted laterally, exposing the peritoneum overlying the triangle of [place]. This was then divided and exposed in a blunt fashion and with hook cautery. Common bile duct was not identified but care was taken not to injure it. The cystic duct was clearly identified and bluntly dissected circumferentially. Cystic artery was identified and tissues around it were dissected off. The cystic duct were clearly going into the gallbladder. The cystic duct was then doubly ligated with surgical clips on the patient's side and singly clipped on the gallbladder side and divided. A prominent cystic vein was located just medial to the cystic duct. This was clearly going into the gallbladder. The cystic vein was then similarly ligated with clips and divided as well. 5 mm clips barely went across the cystic duct. To avoid cystic duct bile leak I elected to place 0-0 PDS endoloop just proximal to the cystic duct stump clips. The gallbladder was dissected from the liver bed in retrograde fashion using hookcautery. A cystic artery was encountered medial to the gallbladder wrapped in peritoneum. This was clearly going into the gallbladder and terminating at the gallbladder fundus. This was circumferentially dissected with [place] dissector. It was clipped with two 5 mm clips on the patient's side and specimen side and divided between the clips. The gallbladder was placed into an Endo-Catch bag and removed through the supraumbilical incision. Surgical site was examined for bleeding. No bleeding was seen in the surgical field. The fascia of the supraumbilical incision was then closed with 0-0 vicryl using Juan Sade needle under direct visualization. Pneumoperitoneum was completely reduced after viewing removal of the trocars under direct vision. The skin was then closed with 4-0 monocryl and steristrips were applied. Instrument, sponge, and needle counts were correct at closure and at the conclusion of the case. The patient was transferred to PACU in stable condition. Findings: Mild gallbladder inflammation. Anesthesia: GETA Surgeon: Danny Irizarry MD Estimated blood loss (mL): 5 Specimen: Gallbladder Condition: stable Disposition: PACU Date of procedure: 03/12/23
[2023-03-12] MEDS: PANTOPRAZOLE SODIUM 40 MG INJ IVP (08:43)
[2023-03-12] MEDS: LACTATED RINGERS 1000 ML 1,000 ML 125 ML IV ×3 (09:10→19:12)
--- NOTE | 2023-03-12 10:37 | W.ANESCHARGE ---
Anesthesia Charges Start Date/Time Anesthesia Start Date: 03/12/23 Anesthesia Start Time: 09:10 Stop Date/Time Anesthesia Stop Date: 03/12/23 Anesthesia Stop Time: 10:29
[2023-03-12] MEDS: HYDROCODONE-ACETAMIN 5-325 MG 1 TAB PO ×2 (14:58→20:24)
[2023-03-12] MEDS: ACETAMINOPHEN 325 MG TABLET 650 MG PO (15:40)
--- NOTE | 2023-03-12 16:11 | P.IMPN_ITS ---
Progress Note: A&P Assessment and plan (1) Acute cholecystitis due to biliary calculus: Problem details: IV antibiotics. If continued to improve plan cholecystectomy tomorrow with Dr. Irizarry Status: Acute (2) Acute gallstone pancreatitis: Problem details: Clinically much better. Status: Acute (3) Postoperative nausea: Problem details: Continue to monitor and manage. Anticipate this will improve over the next day Status: Acute (4) Postoperative hypoxia: Problem details: Anticipate improvement as affects of anesthesia wear off. Continue to monitor with opioid therapies. Status: Acute (5) Postoperative pain: Problem details: Having moderate amount of pain. Continue to monitor and manage. Status: Acute Plan Discharge when taking adequate p.o. food and fluid and pain adequately controlled. May need to stay overnight until these goals have been met. Time Spent With Patient Total time spent: Total time spent today is 40 minutes, 30 minutes in coordination of care discussing with patient and other providers ongoing management of postoperative symptoms Subjective Date Seen: 03/12/23 Interval history: 37-year-old male seen following hospital admission for gallstone pancreatitis and acute cholecystitis. He underwent cholecystectomy today with Dr. Irizarry. Still is reporting a moderate amount of epigastric pain. He is eating very slowly just having sips of water and is so far eaten 1 salty crackers. He is still requiring a minimal amount of oxygen to maintain his O2 sats. Exam Narrative: Exam Narrative: He is mildly sleepy but arouses to voice and appears in no distress. Respirations are clear to auscultation. Cardiovascular: S1, S2, regular rhythm. Abdomen is soft he has moderate epigastric tenderness. Laparoscopic incision sites without significant drainage or erythema. Const: Vital Signs, click to edit/add: Vital Signs - 24 hr 03/11/23 16:40 03/11/23 17:51 03/11/23 18:55 Temperature 98.7 F 99.6 F 97.9 F Pulse Rate Pulse Rate [Left P ulse Oximeter] 104 H Respiratory Rate 20 Blood Pressure Blood Pressure [Ri ght Arm] 155/99 H Pulse Oximetry 93 Oxygen Delivery Me thod Room Air Oxygen Flow Rate 03/11/23 20:11 03/11/23 23:00 03/11/23 23:00 Temperature 98.5 F Pulse Rate Pulse Rate [Left P ulse Oximeter] 104 H 110 H Respiratory Rate 20 20 Blood Pressure Blood Pressure [Ri ght Arm] 156/100 H Pulse Oximetry 94 90 Oxygen Delivery Me thod Room Air Room Air Oxygen Flow Rate 03/11/23 23:00 03/12/23 03:00 03/12/23 07:00 Temperature 98.7 F 98.6 F Pulse Rate Pulse Rate [Left P ulse Oximeter] 110 H 107 H 109 H Respiratory Rate 20 20 20 Blood Pressure Blood Pressure [Ri ght Arm] 154/94 H 144/96 H Pulse Oximetry 90 90 Oxygen Delivery Me thod Room Air Room Air Oxygen Flow Rate 03/12/23 07:00 03/12/23 07:00 03/12/23 10:30 Temperature 98.2 F 98.8 F Pulse Rate 117 H Pulse Rate [Left P ulse Oximeter] 109 H Respiratory Rate 20 20 14 Blood Pressure 153/109 H Blood Pressure [Ri ght Arm] 151/90 H Pulse Oximetry 93 93 91 Oxygen Delivery Me thod Room Air Room Air Room Air Oxygen Flow Rate 03/12/23 10:35 03/12/23 10:40 03/12/23 10:45 Temperature Pulse Rate 111 H 108 H 108 H Pulse Rate [Left P ulse Oximeter] Respiratory Rate 14 14 14 Blood Pressure 155/105 H 160/107 H 157/109 H Blood Pressure [Ri ght Arm] Pulse Oximetry 95 96 95 Oxygen Delivery Me thod Nasal Cannula Nasal Cannula Nasal Cannula Oxygen Flow Rate 2 2 2 03/12/23 10:50 03/12/23 10:55 03/12/23 11:00 Temperature 100 F H Pulse Rate 102 H 107 H 105 H Pulse Rate [Left P ulse Oximeter] Respiratory Rate 14 14 14 Blood Pressure 166/110 H 158/100 H 160/103 H Blood Pressure [Ri ght Arm] Pulse Oximetry 96 93 93 Oxygen Delivery Me thod Nasal Cannula Room Air Room Air Oxygen Flow Rate 2 03/12/23 11:25 03/12/23 11:30 03/12/23 11:45 Temperature 97.7 F 98.2 F 98.3 F Pulse Rate 101 H Pulse Rate [Left P ulse Oximeter] 104 H 101 H Respiratory Rate 17 16 18 Blood Pressure Blood Pressure [Ri ght Arm] 158/105 H 158/108 H 163/107 H Pulse Oximetry Oxygen Delivery Me thod Nasal Cannula Nasal Cannula Nasal Cannula Oxygen Flow Rate 2 2 2 03/12/23 12:00 03/12/23 12:15 03/12/23 12:30 Temperature Pulse Rate Pulse Rate [Left P ulse Oximeter] 104 H 104 H Respiratory Rate 18 Blood Pressure Blood Pressure [Ri ght Arm] 153/103 H 155/104 H 151/99 H Pulse Oximetry Oxygen Delivery Me thod Nasal Cannula Oxygen Flow Rate 2 03/12/23 12:45 03/12/23 13:15 03/12/23 15:40 Temperature 99.4 F 99.9 F H 99.0 F Pulse Rate Pulse Rate [Left P ulse Oximeter] 105 H 114 H Respiratory Rate 17 18 Blood Pressure Blood Pressure [Ri ght Arm] 158/105 H 149/102 H Pulse Oximetry Oxygen Delivery Me thod Nasal Cannula Nasal Cannula Oxygen Flow Rate 2 2 Documenting provider has reviewed patient's vital signs: yes Labs Labs: Laboratory Results - last 24 hr 03/12/23 07:20 WBC 13.28 H RBC 4.73 Hgb 14.6 Hct 43.3 MCV 92 MCH 31 MCHC 34 RDW Coeff of Vicky 11.9 Plt Count 189 Neut % (Auto) 83.1 H Lymph % (Auto) 8.7 L [place] % (Auto) 7.3 Eos % (Auto) 0.5 Baso % (Auto) 0.2 Neut # (Auto) 11.00 H Lymph # (Auto) 1.20 [place] # (Auto) 1.00 H Eos # (Auto) 0.10 Baso # (Auto) 0.00 Abs Immat Gran (auto) 0.00 Imm/Tot Granulo (auto) 0.2 Total Bilirubin 1.8 H Direct Bilirubin 0.0 AST 66 H ALT 205 H Alkaline Phosphatase 88 C-Reactive Protein 23.8 H Total Protein 6.5 Albumin 3.4 Lipase 791 H
[2023-03-12] MEDS: SODIUM CHLORIDE 0.9 % (FLUSH) 10 ML SYRINGE 5 ML IVF (19:07)
--- NOTE | 2023-03-12 19:26 | PC.NURSE ---
@1900 Pt temp was 101.0 Surgeon Called, told to refer to Hospitalist. Oral Temp retaken @ 1920, No Water was consumed. Pt oral temp was 97.9. Temporal Artery was 98.0.
--- NOTE | 2023-03-12 19:48 | PC.NURSE ---
Patient's pain controlled with PRN Dilaudid and [place]. Tylenol given for elevated temperature was effective. Dressing to umbilicus had a scant amount of clear bloody drainage. Bandaid applied for reinforcement. Occasional productive cough with white thick phlegm. Up with stand by assist to bathroom and able to urinate.
[2023-03-12] MEDS: CETIRIZINE HCL 10 MG TABLET PO (20:31)
--- NOTE | 2023-03-12 20:32 | PC.NURSE ---
@2029 Pt temp Ck: 97.9 Oral
[2023-03-13] MEDS: SODIUM CHLORIDE 0.9 % (FLUSH) 10 ML SYRINGE 5 ML IVF ×2 (01:02→05:16)
[2023-03-13] MEDS: HYDROmorphone 0.5 mg/0.5 ml inj IVP ×2 (01:02→05:16)
[2023-03-13 02:30] VITALS: TEMP 36.8
[2023-03-13] MEDS: HYDROCODONE-ACETAMIN 5-325 MG 1 TAB PO ×2 (02:30→11:36)
[2023-03-13] MEDS: LACTATED RINGERS 1000 ML 1,000 ML 125 ML IV (02:33)
[2023-03-13 02:35] VITALS: BP 144/96; PULSE 104; RESP 16; TEMP 37.2; O2SAT 92
--- NOTE | 2023-03-13 03:19 | PC.NURSE ---
Pt rested well this night. Afebrile all night. Pain controlled. No N/V. Up IND. Lap Site CDI.
[2023-03-13 07:50] VITALS: BP 153/100; PULSE 102; RESP 18; TEMP 37.1; O2SAT 92
[2023-03-13] MEDS: SENNOSIDES 1 TAB TABLET 2 TAB PO (08:31)
[2023-03-13] MEDS: ACETAMINOPHEN 325 MG TABLET 650 MG PO (08:31)
[2023-03-13] MEDS: PANTOPRAZOLE SODIUM 40 MG INJ IVP (08:31)
[2023-03-13] MEDS: LORATADINE 10 MG TABLET PO (08:32)
--- NOTE | 2023-03-13 08:32 | PM.GSPN ---
Subjective Subjective Date Seen: 03/13/23 Interval history: Patient is doing well postoperatively. He had a fever up to 101 yesterday. He tolerated clears and regular diet yesterday. He ambulated only to the bathroom. His pain is controlled with pain medications and he feels that his pain is improved today. Exam Narrative: Exam Narrative: Abdomen is soft, not distended, tender to palpation in epigastrium. Stairs are covering laparoscopic incisions. There is a larger Band-Aid placed over the periumbilical incision. Const: Vital Signs, click to edit/add: Vital Signs - 24 hr 03/12/23 10:30 03/12/23 10:35 03/12/23 10:40 Temperature 98.8 F Pulse Rate 117 H 111 H 108 H Pulse Rate [Left P ulse Oximeter] Respiratory Rate 14 14 14 Blood Pressure 153/109 H 155/105 H 160/107 H Blood Pressure [Ri ght Arm] Pulse Oximetry 91 95 96 Oxygen Delivery Me thod Room Air Nasal Cannula Nasal Cannula Oxygen Flow Rate 2 2 03/12/23 10:45 03/12/23 10:50 03/12/23 10:55 Temperature Pulse Rate 108 H 102 H 107 H Pulse Rate [Left P ulse Oximeter] Respiratory Rate 14 14 14 Blood Pressure 157/109 H 166/110 H 158/100 H Blood Pressure [Ri ght Arm] Pulse Oximetry 95 96 93 Oxygen Delivery Me thod Nasal Cannula Nasal Cannula Room Air Oxygen Flow Rate 2 2 03/12/23 11:00 03/12/23 11:25 03/12/23 11:30 Temperature 100 F H 97.7 F 98.2 F Pulse Rate 105 H 101 H Pulse Rate [Left P ulse Oximeter] 104 H Respiratory Rate 14 17 16 Blood Pressure 160/103 H Blood Pressure [Ri ght Arm] 158/105 H 158/108 H Pulse Oximetry 93 Oxygen Delivery Me thod Room Air Nasal Cannula Nasal Cannula Oxygen Flow Rate 2 2 03/12/23 11:45 03/12/23 12:00 03/12/23 12:15 Temperature 98.3 F Pulse Rate Pulse Rate [Left P ulse Oximeter] 101 H 104 H 104 H Respiratory Rate 18 18 Blood Pressure Blood Pressure [Ri ght Arm] 163/107 H 153/103 H 155/104 H Pulse Oximetry Oxygen Delivery Me thod Nasal Cannula Nasal Cannula Oxygen Flow Rate 2 2 03/12/23 12:30 03/12/23 12:45 03/12/23 13:15 Temperature 99.4 F 99.9 F H Pulse Rate Pulse Rate [Left P ulse Oximeter] 105 H 114 H Respiratory Rate 17 18 Blood Pressure Blood Pressure [Ri ght Arm] 151/99 H 158/105 H 149/102 H Pulse Oximetry Oxygen Delivery Me thod Nasal Cannula Nasal Cannula Oxygen Flow Rate 2 2 03/12/23 14:15 03/12/23 15:00 03/12/23 15:00 Temperature 99.7 F H Pulse Rate Pulse Rate [Left P ulse Oximeter] 106 H 117 H Respiratory Rate 19 22 22 Blood Pressure Blood Pressure [Ri ght Arm] 160/100 H Pulse Oximetry 96 90 Oxygen Delivery Me thod Nasal Cannula Nasal Cannula Oxygen Flow Rate 2 0 03/12/23 15:15 03/12/23 15:40 03/12/23 16:15 Temperature 99.0 F 99.0 F 98.5 F Pulse Rate Pulse Rate [Left P ulse Oximeter] 117 H Respiratory Rate 22 19 Blood Pressure Blood Pressure [Ri ght Arm] 155/100 H 137/92 H Pulse Oximetry 90 95 Oxygen Delivery Me thod Room Air Nasal Cannula Oxygen Flow Rate 0 2 03/12/23 17:02 03/12/23 17:15 03/12/23 19:13 Temperature 98.5 F 98.9 F 97.9 F Pulse Rate Pulse Rate [Left P ulse Oximeter] 105 H 83 Respiratory Rate 17 16 Blood Pressure Blood Pressure [Ri ght Arm] 152/97 H 140/93 H Pulse Oximetry 95 97 Oxygen Delivery Me thod Nasal Cannula Nasal Cannula Oxygen Flow Rate 2 2 03/12/23 20:24 03/12/23 20:32 03/12/23 22:08 Temperature 97.9 F 97.9 F 98.2 F Pulse Rate Pulse Rate [Left P ulse Oximeter] 95 Respiratory Rate 16 Blood Pressure Blood Pressure [Ri ght Arm] 138/82 Pulse Oximetry 93 Oxygen Delivery Me thod Room Air Oxygen Flow Rate 03/12/23 22:22 03/12/23 22:24 03/13/23 02:30 Temperature 98.2 F Pulse Rate Pulse Rate [Left P ulse Oximeter] Respiratory Rate 16 16 Blood Pressure Blood Pressure [Ri ght Arm] Pulse Oximetry 93 Oxygen Delivery Me thod Room Air Oxygen Flow Rate 0 03/13/23 02:35 03/13/23 07:50 03/13/23 07:50 Temperature 98.9 F 98.8 F Pulse Rate Pulse Rate [Left P ulse Oximeter] 104 H 102 H Respiratory Rate 16 18 18 Blood Pressure Blood Pressure [Ri ght Arm] 144/96 H 153/100 H Pulse Oximetry 92 92 92 Oxygen Delivery Me thod Room Air Room Air Room Air Oxygen Flow Rate Progress Note: A&P Assessment and plan (1) S/P laparoscopic cholecystectomy: Status: Acute Plan 37-year-old male s/p laparoscopic cholecystectomy POD 1. Discussed with the patient that his fever was most likely due to systemic inflammatory reaction. Will recheck his liver function tests and WBC today. Will follow up on labs and most likely DC home with antibiotics if patient is doing okay.
[2023-03-13 09:30] LABS: Basophils Percent Auto 0.2 % (0.0-3.0); Hematocrit 41.4 % (37.0-53.0); Hemoglobin* 13.8 gm/dL (13.5-17.5); Immature Granulocytes Pct Auto 0.2 %; Lymphocytes Percent Auto 10.5 % (20-44); Mean Corpuscular HGB Conc 33 gm/dL (32-36); Mean Corpuscular Hemoglobin 31 pg (26-34); Mean Corpuscular Volume 92 fL (80-100); Monocytes Percent Auto 8.3 % (0.0-11.0); Neutrophils Percent Auto 78.8 % (42.0-72.0); Platelet Count* 194 K/uL (140-440); RDW Coefficient of Variation % 12.2 % (11.5-15.5); White Blood Count* 12.34 K/uL (4.50-11.00)
[2023-03-13 09:33] LABS: Slide Review Reflex No
[2023-03-13 09:56] LABS: Albumin* 3.1 g/dL (3.3-5.0)
[2023-03-13 09:59] LABS: Alanine Aminotransferase* 138 U/L (4-50); Alkaline Phosphatase* 77 U/L (40-150); Aspartate Amino Transferase* 50 U/L (12-35); Bilirubin Total* 1.2 mg/dL (0.1-1.5); Total Protein* 6.2 g/dL (6.0-8.3)
--- NOTE | 2023-03-20 12:53 | P.DS_ITS ---
DS: Providers Provider Date Seen: 03/13/23 Date of admission: 03/10/23 11:32 Primary care physician: Not a Local Provider Admitting Clinician: Chuy Laughlin MD Consults: 03/10/23 13:23 Consult to Physician [CONS] Routine Comment: Consulting Provider: Danny Irizarry Has provider been notified: Yes Attending Physician on discharge: Sb Arriaga MD Date of Discharge: 03/13/23 DS: Diagnosis Discharge Diagnosis (1) S/P laparoscopic cholecystectomy: Status: Acute Problem details: Performed by Dr. Irizarry on 03/12/2023. No complications (2) Gallstone pancreatitis: Status: Acute Problem details: Clinically improved during hospital stay (3) Acute cholecystitis: Status: Acute Problem details: Clinically improved during hospital stay. DS: Summary Hospital Course Hospital Course: 37-year-old male admitted to the hospital with severe epigastric abdominal pain. On admission he was found to have gallstone pancreatitis and acute cholecystitis. He is treated with antibiotics for his acute cholecystitis as well as IV pain medicines and IV fluids. He had relatively rapid improvement in his symptoms. On March 12 he was taken to the operating room by Dr. Irizarry where he an uncomplicated laparoscopic cholecystectomy. Postoperatively he has improved though it took about a day before he was able to eat or drink adequately. It also took about a day postoperatively for him to get adequate pain relief. Postop day 1 he is now feeling much better. He has been able to eat and drink. No further fevers. Status at Discharge Functional status at discharge: independent ambulation Overall status at discharge: patient is progressing back to baseline Time Spent with Patient Time attestation: Total time spent providing and/or coordinating discharge services: 40 minutes Time spent: Greater than 30 minutes Exam Narrative: Exam Narrative: He is alert and appears in no distress. He is ambulating in the hallway. He is observed to eat food. Abdomen is soft. He has expected epigastric and right upper quadrant tenderness status post cholecystectomy but this is much improved from admission. Incisions are clean and dry without significant drainage. DS: Data Data Completed and Pending Completed studies during hospitalization: Procedures Introduction of Other Gas into Respiratory Tract, Via Natural or Artificial Opening (03/10/23) Resection of Gallbladder, Percutaneous Endoscopic Approach (03/10/23) Discharge Plan Discharge Disposition: Home, Self-Care Date of Admission: 03/10/23 11:32 Attending Provider on Discharge: Danny Irizarry Consulting Providers: Danny Irizarry; David Arriaga Primary Care Provider: Provider,Not a Local Condition: Improved Anticipated Discharge Date/Time: 03/13/23 10:55 Discharge Medications: New hydrocodone-acetaminophen 5-325 mg tablet 1 tab PO Q6H PRN (Reason: pain) Qty: 25 0RF amoxicillin-pot clavulanate 875-125 mg tablet 1 tab PO BID Qty: 10 0RF Continued methylphenidate HCl [Concerta] 36 mg tablet extended release 24hr 36 mg PO DAILY loratadine [Allerclear] 10 mg tablet 10 mg PO DAILY cetirizine [24Hour Allergy] 10 mg tablet 10 mg PO HS Discharge Orders: Discharge Order (Routine); Ordered 03/13/23 Ordered By: David Arriaga Consulting provider completed their portion of the discharge: Yes Patient Education: Hydrocodone/Acetaminophen (By mouth), Amoxicillin/Clavulanate Potassium (By mouth), General Anesthesia (DC), Laparoscopic Cholecystectomy (DC), Post-Operative Instructions: Laparoscopic Cholecystectomy Additional Instructions: follow up with Jake Taylor MD at the [facility] in one week. Activity Level: No strenuous activity Discharge Diet: Regular Follow Up Appointments: Jake Taylor [Other] (Call to schedule a follow up to be seen in 1 week) Danny Irizarry MD [Staff Physician] - 03/29/23 8:00 am (2 weeks if feeling ok you may call and cancel this appointment [phone]) Forms: [employer] Info Instructions Discharge Comments: If patient is recovering well, okay to discharge. Please let the patient know that we usually make an appointment for him to follow up in clinic with me in 2 weeks. However since he lives in [place], if he is doing well, he does not need to follow up in clinic. If he has any concerns, he can keep his 2 week appointment.
== END 2023-03-13 11:55 | disposition home or self-care (01) | DRG 263 ==
LOC: ED 08:05 → MEDSURG 10:41
PROVIDERS: Emergency Medicine Emergency Medical Services; Family Medicine; Surgery; Admitting Provider Internal Medicine; Emergency Provider Family Medicine; Visit Provider Internal Medicine
PROC: 0FT44ZZ Resection of Gallbladder, Percutaneous Endoscopic Approach (ICD-10-PCS; CPT 47562; principal; 2023-03-12 08:30)
DX: K85.10 Biliary acute pancreatitis without necrosis or infection (principal); K81.0 Acute cholecystitis; R50.82 Postprocedural fever
CPT/HCPCS: 00790; 36415; 74177; 76705; 80048; 80053; 80061; 80076; 81001; 82248; 82803; 83605; 83690; 83735; 84100; 84132; 85025; 86140; 87040; 88304; 99285; A9270; C9113; J0330; J1170; J2250; J2405; J2543; J2704; J3010; J7030; J7120; Q9967

== ENCOUNTER 2023-10-23 13:08 | Inpatient (IN) | payer BC, SELFPAY ==
[2023-10-23] VITALS (8 sets, daily range): BP systolic 118–142; BP diastolic 85–94; PULSE 70–111; RESP 16–18; TEMP 36.5–37.4; O2SAT 95–97; BMI 28.3; BMI 28.6
--- NOTE | 2023-10-23 14:27 | ED.GENADULT ---
HPI - General Adult General Chief complaint: Extremity Pain/Injury, Lower Stated complaint: Cellulitis R leg Time Seen by Provider: 10/23/23 13:24 History of Present Illness HPI narrative: This 38-year-old male was seen yesterday in a [place] emergency room and treated for a cellulitis of his right lower extremity. He was treated with IV vancomycin and doxycycline orally going forward. He does not have any prior medical history, in particular no diabetes, vascular disease, or other previous complication related to this cellulitis in his right lower extremity. He comes in today because the redness has increased in the area between his knee and his ankle. He does not have any red streak going up his leg. He has not had any fevers. He states that he feels okay otherwise. He arrives here with normal vital signs. Related Data Home Medications Medication Instructions Recorded Confirmed cetirizine 10 mg tablet (24Hour 10 mg PO HS 03/10/23 03/10/23 Allergy) loratadine 10 mg tablet 10 mg PO DAILY 03/10/23 03/10/23 (Allerclear) methylphenidate HCl 36 mg 36 mg PO DAILY 03/10/23 03/10/23 tablet,extended release 24 hr (Concerta) doxycycline monohydrate 100 mg 100 mg PO BID 10/23/23 10/23/23 tablet Allergies Allergy/AdvReac Type Severity Reaction Status Date / Time amphetamine [From Adderall] Allergy Verified 03/10/23 07:14 dextroamphetamine Allergy Verified 03/10/23 07:14 [From Adderall] Review of Systems Status of ROS: Reports: 10 or more systems reviewed and unremarkable except as noted in History and below Narrative: Constitutional: No fevers, no weight gain or loss. Eyes: No discharge. No vision changes. HENT: No congestion, no sore throat, no ear pain. Cardiovascular: No chest pain, no palpitations. Respiratory: No shortness of breath, no wheezes, no cough. Gastrointestinal: No abdominal pain, no vomiting, no diarrhea. Genitourinary: No dysuria, no hematuria. Musculoskeletal: Normal range of motion. Right lower extremity cellulitis. Skin: No rashes, no pruritis. Neurological: No dizziness, weakness, sensory change, speech change. Endo/Heme/Allergies: No bruising or bleeding. No polydipsia. Pysch: no suicidality, no anxiety, no insomnia. All other systems reviewed and are negative. [facility] Medical History (Updated 10/23/23 @ 15:46 by Obdulio Meng MD) Acute cholecystitis ?K81.0 - Acute cholecystitis (ICD-10) Gallstone pancreatitis ?K85.10 - Biliary acute pancreatitis without necrosis or infection (ICD-10) Broken nose ?S02.2XXA - Fracture of nasal bones, initial encounter for closed fracture (ICD-10) Marijuana use ?F12.90 - Cannabis use, unspecified, uncomplicated (ICD-10) History of tobacco use ?Z87.891 - Personal history of nicotine dependence (ICD-10) Attention deficit hyperactivity disorder (ADHD) ?F90.9 - Attention-deficit hyperactivity disorder, unspecified type (ICD-10) Surgical History (Updated 03/21/23 @ 00:01 by Nya Jimenez) History of placement of ear tubes ?Z96.22 - Myringotomy tube(s) status (ICD-10) Social History (Updated 03/11/23 @ 15:21 by Danny Irizarry MD) Narrative: 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 What is your current living situation?: I presently have a place to live Problems where you live: no known problems Problems where you live details: no known problems In the past 12 months, utilities in danger of being shut off: no In past 12 months, lack of transportation kept you from medical appts, meetings, work, or getting things needed for daily living: no In the past 12 mos, have been you worried that your food would run out before you had money to buy more?: never true In the past 12 mos, the food you bought just didn't last and you didn't have money to buy more?: never true Highest level of school completed/degree received: some college, no degree Smoking Status: Former smoker Do you use any of these nicotine containing products: None Second hand tobacco smoke exposure: No How often do you have a drink containing alcohol: never AUDIT-C Alcohol total score: 0 Non-prescribed substance use: marijuana (any form) Caffeine: No How often does anyone, including family, friends and others, physically hurt you: never How often does anyone, including family, friends and others, insult or talk down to you: never How often does anyone, including family, friends and others, threaten you with harm: never How often does anyone, including family, friends and others, scream or curse at you: never service: No Exam Narrative: Exam Narrative: Constitutional: Well-developed, well-nourished, no acute distress. HEENT: Normocephalic, atraumatic. Neck: Normal range of motion. Nontender. Supple. Heart: Regular. No murmurs. Normal rate. Intact distal pulses. Lungs: Clear to auscultation. No chest discomfort. No wheezes, rhonchi, or rales. Abdomen: Normal bowel sounds. Nontender. No rebound tenderness. Genitalia: Deferred. Back: No midline tenderness. Normal range of motion. Extremities: Normal range of motion. No injury. Right lower extremity has erythema on the anterior aspect from the ankle about [address] to the knee and spreading to the medial and lateral aspect of the lower extremity. There is no drainage or sign of abscess. Skin: Intact. No rash. Warm. No erythema or pallor. Neurologic: No altered sensation. No weakness. Alert and oriented. Psychiatric: No suicidality. No anxiety or depression. No insomnia. Nursing notes and vitals signs are reviewed. Const: Vital Signs, click to edit/add: Vital Signs - 24 hr 10/23/23 13:12 10/23/23 15:03 10/23/23 15:15 Temperature 98.6 F Pulse Rate [Pulse Oximeter] 111 H 82 Respiratory Rate 18 Blood Pressure [Ri ght Upper Arm] 130/88 131/91 H Pulse Oximetry 97 95 Oxygen Delivery Me thod Room Air Room Air Course Vital Signs Vital signs: Initial Vital Signs Temperature 98.6 F 10/23/23 13:12 Temperature Source Temporal Artery Scan 10/23/23 13:12 Pulse Rate 111 H 10/23/23 13:12 Respiratory Rate 18 10/23/23 13:12 Blood Pressure 130/88 10/23/23 13:12 Blood Pressure Mean 102 10/23/23 13:12 Blood Pressure Position Sitting 10/23/23 13:12 Pulse Oximetry 97 10/23/23 13:12 Oxygen Delivery Method Room Air 10/23/23 13:12 Vital Signs Temperature 98.6 F 10/23/23 13:12 Pulse Rate 111 H 10/23/23 13:12 Respiratory Rate 18 10/23/23 13:12 Blood Pressure 130/88 10/23/23 13:12 Pulse Oximetry 97 10/23/23 13:12 Oxygen Delivery Method Room Air 10/23/23 13:12 Temperature 98.6 F 10/23/23 13:12 Pulse Rate 82 10/23/23 15:03 Respiratory Rate 18 10/23/23 13:12 Blood Pressure 131/91 H 10/23/23 15:15 Pulse Oximetry 95 10/23/23 15:03 Oxygen Delivery Method Room Air 10/23/23 15:03 Medications Administered Medications: Generic Name Dose Route Start Last Admin Trade Name Freq PRN Reason Stop Dose Admin Lidocaine HCl 2.1 ml 10/23/23 14:26 10/23/23 14:56 Lidocaine 1% 5 Ml (Pf) 5 Ml Vial IM 2.1 ml DIRECTED PRN Administration Pain Discontinued Medications Generic Name Dose Route Start Last Admin Trade Name Freq PRN Reason Stop Dose Admin Ceftriaxone Sodium 1 gm 10/23/23 14:26 10/23/23 14:56 Ceftriaxone 1 Gm Vial IM 10/23/23 14:27 1 gm ONCE ONE Administration Medical Decision Making MDM Narrative Medical decision making narrative: This patient comes in with report of worsening symptoms of cellulitis in his right lower extremity. I did see pictures of his leg how it appeared yesterday. Clearly there is an increase of redness. He arrives with normal vital signs and I explained that of the redness can increase over the 1st day after treatment. He did receive an IV dose of vancomycin and a prescription for doxycycline. I did acquire labs and gave an in intramuscular injection of Rocephin. Lab results returned with a white count at 8 and C-reactive protein at around 18. I went in to reexamine him and clearly the erythema has spread now above his knee and perhaps developing somewhat of a streak in the inner aspect of his right upper leg. Vital signs continue to be normal. An IV was then established and blood cultures obtained. I did call the hospitalist on-call, Dr. Arriaga, who agrees to his admission and will likely use IV Ancef to treat. Lab Data Labs: Lab Results 10/23/23 Range/Units 14:33 WBC 8.06 (4.50-11.00) K/uL RBC 4.58 (4.30-5.90) m/uL Hgb 14.0 (13.5-17.5) gm/dL Hct 41.4 (37.0-53.0) % MCV 90 (80-100) fL MCH 31 (26-34) pg MCHC 34 (32-36) gm/dL RDW Coeff of Vicky 13.2 (11.5-15.5) % Plt Count 241 (140-440) K/uL Neut % (Auto) 66.0 (42.0-72.0) % Lymph % (Auto) 17.6 L (20-44) % [place] % (Auto) 15.0 H (0.0-11.0) % Eos % (Auto) 0.5 (0.0-7.0) % Baso % (Auto) 0.2 (0.0-3.0) % Neut # (Auto) 5.31 (1.7-7.0) K/uL Lymph # (Auto) 1.40 (0.90-2.90) K/uL [place] # (Auto) 1.20 H (0.00-0.90) K/UL Eos # (Auto) 0.04 (0.00-0.50) K/uL Baso # (Auto) 0.02 (0.00-0.30) K/uL Abs Immat Gran (auto) 0.06 (0.00-0.30) K/uL Imm/Tot Granulo (auto) 0.7 % C-Reactive Protein 18.3 H (0.5-1.0) mg/dL Discharge Plan Discharge Clinical Impression: Cellulitis Patient Disposition: Admitted As Inpatient Prescriptions: No Action methylphenidate HCl [Concerta] 36 mg tablet extended release 24hr 36 mg PO DAILY loratadine [Allerclear] 10 mg tablet 10 mg PO DAILY cetirizine [24Hour Allergy] 10 mg tablet 10 mg PO HS doxycycline monohydrate 100 mg tablet 100 mg PO BID Follow Up/Referrals: Provider,Not a Local [Primary Care Provider] -
[2023-10-23] MEDS: cefTRIAXone 1 GM VIAL IM (14:56)
[2023-10-23] MEDS: LIDOCAINE 1% 5 ml (pf) 5 ML VIAL 2.1 ML IM (14:56)
[2023-10-23 15:18] LABS: Basophils Absolute Auto 0.02 K/uL (0.00-0.30); Basophils Percent Auto 0.2 % (0.0-3.0); Eosinophils Absolute Auto 0.04 K/uL (0.00-0.50); Eosinophils Percent Auto 0.5 % (0.0-7.0); Hematocrit 41.4 % (37.0-53.0); Immature Granulocytes Abs Auto 0.06 K/uL (0.00-0.30); Immature Granulocytes Pct Auto 0.7 %; Lymphocytes Percent Auto 17.6 % (20-44); Mean Corpuscular HGB Conc 34 gm/dL (32-36); Mean Corpuscular Hemoglobin 31 pg (26-34); Mean Corpuscular Volume 90 fL (80-100); Neutrophils Absolute Auto 5.31 K/uL (1.7-7.0); Platelet Count* 241 K/uL (140-440); RDW Coefficient of Variation % 13.2 % (11.5-15.5); Red Blood Count 4.58 m/uL (4.30-5.90); White Blood Count* 8.06 K/uL (4.50-11.00)
[2023-10-23 15:30] LABS: C Reactive Protein* 18.3 mg/dL (0.5-1.0)
[2023-10-23 15:31] LABS: Slide Review Reflex No
[2023-10-23 15:59] LABS: Lactate* 0.9 mmol/L (0.5-1.9)
--- NOTE | 2023-10-23 16:31 | P.IMHP_ITS ---
Hospitalist- H&P: HPI History of Present Illness Date Seen: 10/23/23 Chief complaint: Cellulitis R leg Narrative: Waylon Lackey is a 38 year old male admitted through the emergency department with 4 days of fever and 1 day of right leg pain swelling and redness. Patient was in his usual state of good health until about 4 days ago when he started feeling fever and chills. The fever persisted but he had no other obvious signs of illness or infection until yesterday morning he awoke in his right leg was painful. He looked at it any saw that it was red and swollen. He was seen in [place] for this and diagnosed with leg cellulitis. He he was given IV vancomycin and oral doxycycline. He has had 2 doses of doxycycline. He still had fever this morning. He came to the emergency room to here because he noted redness going up the inside of his leg toward his groin and he was having more pain swelling and redness in his right calf. He has not had previous problems like this. He has not had any injury to his leg. No history of blood clots. He did travel to [place] 2 weeks ago for a music festival but was not aware of any event that would have caused this current leg problem and fever. Last tetanus was in July of 2017. He reports no other symptoms of illness. Specifically denies respiratory symptoms, shortness of breath, cough, chest pain, abdominal pain, nausea, vomiting, loss appetite. Bowel function has been normal. Urination has been normal. Review of Systems Narrative: No other illness or injury recently. Review of systems negative except as noted above [facility] Medical History Acute cholecystitis ?K81.0 - Acute cholecystitis (ICD-10) Gallstone pancreatitis ?K85.10 - Biliary acute pancreatitis without necrosis or infection (ICD-10) Broken nose ?S02.2XXA - Fracture of nasal bones, initial encounter for closed fracture (ICD-10) Marijuana use ?F12.90 - Cannabis use, unspecified, uncomplicated (ICD-10) History of tobacco use ?Z87.891 - Personal history of nicotine dependence (ICD-10) Attention deficit hyperactivity disorder (ADHD) ?F90.9 - Attention-deficit hyperactivity disorder, unspecified type (ICD-10) Surgical History History of placement of ear tubes ?Z96.22 - Myringotomy tube(s) status (ICD-10) Social History (Updated 10/23/23 @ 16:36 by David Arriaga MD) Narrative: 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 He rarely does heavy lifting. He does not smoke or drink. Occasional cannabis use. What is your current living situation?: I presently have a place to live Problems where you live: no known problems Problems where you live details: no known problems In the past 12 months, utilities in danger of being shut off: no In past 12 months, lack of transportation kept you from medical appts, meetings, work, or getting things needed for daily living: no In the past 12 mos, have been you worried that your food would run out before you had money to buy more?: never true In the past 12 mos, the food you bought just didn't last and you didn't have money to buy more?: never true Highest level of school completed/degree received: some college, no degree Smoking Status: Former smoker Do you use any of these nicotine containing products: None Second hand tobacco smoke exposure: No How often do you have a drink containing alcohol: never AUDIT-C Alcohol total score: 0 Non-prescribed substance use: marijuana (any form) Caffeine: No How often does anyone, including family, friends and others, physically hurt you : never How often does anyone, including family, friends and others, insult or talk down to you: never How often does anyone, including family, friends and others, threaten you with harm: never How often does anyone, including family, friends and others, scream or curse at you: never service: No Meds Home Medications and Allergies Home Medications Medication Instructions Recorded Confirmed Type cetirizine 10 mg tablet (24Hour 10 mg PO HS 03/10/23 03/10/23 History Allergy) loratadine 10 mg tablet 10 mg PO DAILY 03/10/23 03/10/23 History (Allerclear) methylphenidate HCl 36 mg 36 mg PO DAILY 03/10/23 03/10/23 History tablet,extended release 24 hr (Concerta) doxycycline monohydrate 100 mg 100 mg PO BID 10/23/23 10/23/23 History tablet Home Medication Comments: He takes allergy medicines seasonally, usually in the fall. Doxycycline was started yesterday. Methylphenidate he takes primarily on week days when he goes to work Allergies Allergy/AdvReac Type Severity Reaction Status Date / Time amphetamine [From Adderall] Allergy Verified 03/10/23 07:14 dextroamphetamine Allergy Verified 03/10/23 07:14 [From Adderall] Exam Narrative: Exam Narrative: He is alert and appears in no distress. Eyes normal. Oropharynx normal. Neck is supple without mass or adenopathy. Respirations are clear to auscultation. Cardiovascular: S1, S2, regular rate and rhythm. No murmur gallop or rub. Abdomen: Bowel sounds active. Abdomen is soft without tenderness or mass. U pper extremities are normal without redness swelling. Intact strength and motion. Lower extremities: Right lower extremity with moderate swelling erythema, purpura, tenderness over his right calf. This area has irregular borders extending from the ankle up about [address] over the calf toward the knee. Areas of erythema over the anteromedial thigh on the right as well. Intact pedal pulses. Left lower extremity is normal. The rest of his skin is normal. Const: Vital Signs, click to edit/add: Vital Signs - 24 hr 10/23/23 13:12 10/23/23 15:03 10/23/23 15:15 Temperature 98.6 F Pulse Rate [Pulse Oximeter] 111 H 82 Respiratory Rate 18 Blood Pressure [Ri ght Upper Arm] 130/88 131/91 H Pulse Oximetry 97 95 Oxygen Delivery Me thod Room Air Room Air Documenting provider has reviewed patient's vital signs: yes Hospitalist - H&P: Result Labs Labs: Short CBC 10/23/23 Range/Units 14:33 WBC 8.06 (4.50-11.00) K/uL Hgb 14.0 (13.5-17.5) gm/dL Hct 41.4 (37.0-53.0) % Plt Count 241 (140-440) K/uL Assessment and Plan Assessment and plan (1) Cellulitis: Problem comment: Right lower extremity cellulitis has gotten progressively worse despite IV and oral antibiotics over the last day and a half. Will admit for IV antibiotics, Ancef. Anticipate signs of improvement in the next 2-3 days. Status: Acute Plan Admit for IV antibiotics. Total Time Spent Total Time Spent: Total time spent today is 55 minutes, 40 minutes in coordination of care discussing with patient and other providers management of cellulitis.
[2023-10-23 16:37] LABS: Procalcitonin* 0.13 ng/mL (<0.50)
[2023-10-23] MEDS: ACETAMINOPHEN 325 MG TABLET 650 MG PO (19:54)
[2023-10-23] MEDS: CEFAZOLIN 1 GM in 0.9 % SODIUM CHLORIDE Mini-bag 100 ML IVPB (23:25)
--- NOTE | 2023-10-23 23:51 | PC.NURSE ---
End of Shift: Patient pleasant and cooperative, A&O. VSS, fever started around 1999, gave PRN medication, with relief, see MAR. Redness outlined on right leg. Patient reports ?tightness? on right lower leg. Independent. Tolerating regular diet.
[2023-10-24] VITALS (8 sets, daily range): BP systolic 120–136; BP diastolic 79–90; PULSE 58–102; RESP 16; TEMP 36.4–37.4; O2SAT 93–96
[2023-10-24 06:33] LABS: Basophils Absolute Auto 0.03 K/uL (0.00-0.30); Basophils Percent Auto 0.4 % (0.0-3.0); Eosinophils Absolute Auto 0.03 K/uL (0.00-0.50); Eosinophils Percent Auto 0.4 % (0.0-7.0); Hematocrit 42.6 % (37.0-53.0); Hemoglobin* 14.3 gm/dL (13.5-17.5); Immature Granulocytes Abs Auto 0.07 K/uL (0.00-0.30); Immature Granulocytes Pct Auto 0.8 %; Lymphocytes Percent Auto 19.7 % (20-44); Mean Corpuscular HGB Conc 34 gm/dL (32-36); Mean Corpuscular Hemoglobin 30 pg (26-34); Mean Corpuscular Volume 90 fL (80-100); Neutrophils Absolute Auto 5.72 K/uL (1.7-7.0); Neutrophils Percent Auto 66.7 % (42.0-72.0); Platelet Count* 247 K/uL (140-440); RDW Coefficient of Variation % 13.1 % (11.5-15.5); Red Blood Count 4.73 m/uL (4.30-5.90); White Blood Count* 8.57 K/uL (4.50-11.00)
[2023-10-24] MEDS: CEFAZOLIN 1 GM in 0.9 % SODIUM CHLORIDE Mini-bag 100 ML IVPB ×3 (06:33→22:35)
[2023-10-24 06:45] LABS: Slide Review Reflex No
[2023-10-24 07:14] LABS: C Reactive Protein* 15.8 mg/dL (0.5-1.0)
--- NOTE | 2023-10-24 07:21 | PC.NURSE ---
Pt is alert and oriented x3. Afebrile. Pt denies pain, chest pain, SOB, N/V. Pt?s right leg cellulitis is outlined and redness is receding pt reports ?it feels and looks much better. The color was much more red before.? Pt is up ad sissy in room, tolerating regular diet and voiding. Pt slept throughout most of night. ??
[2023-10-24] MEDS: SODIUM CHLORIDE 0.9 % (FLUSH) 10 ML SYRINGE 5 ML IVF ×2 (07:28→22:35)
--- NOTE | 2023-10-24 08:51 | PM.IMPN1 ---
Progress Note: A&P Assessment and plan (1) Cellulitis: Problem details: - RLE, initially treated with IV Vancomycin and oral Doxycycline ([facility] on 10/21), worsened in the 24 hours prior to admission - BCx exhibit NGTD - continue IV Ancef (10/22), ambulation. Anticipate d/c home tomorrow if continued improvement Status: Acute Plan - per above - ambulation for ppx Subjective Date Seen: 10/24/23 Interval history: Waylon was admitted to the hospital last night for right lower extremity cellulitis after failing 1-2 days of outpatient doxycycline. He is tolerating IV Ancef well, erythema has not extended past outline that was drawn upon admission. Tmax 99.4, Blood Culture currently NGTD. CRP trending downward, WBC remains within normal limits. This morning, Waylon is feeling better. He still has discomfort when bearing weight, improves as he walks for a little bit. Exam Narrative: Exam Narrative: GEN: Alert and oriented, nontoxic HEENT: Normal external ears, EOMIs bilaterally, no scleral icterus CV: RRR, No concerning murmurs R: LCTA bilaterally without concerning wheezing, air movement adequate Ext: No concerning edema Skin: Erythema of RLE, distal to LE, circumferential. Erythema extends caudally Neuro: Nonfocal, normal peripheral pulses and capillary refill Psych: Appropriate Const: Vital Signs, click to edit/add: Vital Signs - 24 hr 10/23/23 13:12 10/23/23 15:03 10/23/23 15:15 Temperature 98.6 F Pulse Rate [Left P ulse Oximeter] Pulse Rate [Pulse Oximeter] 111 H 82 Respiratory Rate 18 Blood Pressure [Le ft Arm] Blood Pressure [Ri ght Upper Arm] 130/88 131/91 H Pulse Oximetry 97 95 Oxygen Delivery Me thod Room Air Room Air 10/23/23 16:35 10/23/23 16:36 10/23/23 19:00 Temperature 98.1 F 99.4 F Pulse Rate [Left P ulse Oximeter] 89 100 Pulse Rate [Pulse Oximeter] Respiratory Rate 18 18 18 Blood Pressure [Le ft Arm] 131/94 H 142/94 H Blood Pressure [Ri ght Upper Arm] Pulse Oximetry 95 97 Oxygen Delivery Me thod Room Air Room Air 10/23/23 19:54 10/24/23 00:15 10/24/23 02:05 Temperature 99.1 F 99.2 F 98.4 F Pulse Rate [Left P ulse Oximeter] 86 99 Pulse Rate [Pulse Oximeter] Respiratory Rate 16 16 Blood Pressure [Le ft Arm] 126/79 136/88 Blood Pressure [Ri ght Upper Arm] Pulse Oximetry 93 96 Oxygen Delivery Me thod Room Air Room Air 10/24/23 07:26 Temperature 99.4 F Pulse Rate [Left P ulse Oximeter] 98 Pulse Rate [Pulse Oximeter] Respiratory Rate 16 Blood Pressure [Le ft Arm] 122/83 Blood Pressure [Ri ght Upper Arm] Pulse Oximetry 94 Oxygen Delivery Me thod Room Air Labs Labs: Laboratory Results - last 24 hr 10/23/23 10/23/23 10/24/23 14:33 15:50 06:21 WBC 8.06 8.57 RBC 4.58 4.73 Hgb 14.0 14.3 Hct 41.4 42.6 MCV 90 90 MCH 31 30 MCHC 34 34 RDW Coeff of Vicky 13.2 13.1 Plt Count 241 247 Neut % (Auto) 66.0 66.7 Lymph % (Auto) 17.6 L 19.7 L [place] % (Auto) 15.0 H 12.0 H Eos % (Auto) 0.5 0.4 Baso % (Auto) 0.2 0.4 Neut # (Auto) 5.31 5.72 Lymph # (Auto) 1.40 1.70 [place] # (Auto) 1.20 H 1.00 H Eos # (Auto) 0.04 0.03 Baso # (Auto) 0.02 0.03 Abs Immat Gran (auto) 0.06 0.07 Imm/Tot Granulo (auto) 0.7 0.8 Lactate 0.9 C-Reactive Protein 18.3 H 15.8 H Procalcitonin 0.13
[2023-10-24] MEDS: ACETAMINOPHEN 325 MG TABLET 650 MG PO (13:32)
--- NOTE | 2023-10-24 14:13 | PC.NURSE ---
End of shift note: Patient has been up ambulating the halls frequently today. Pain in right lower leg tolerable. Has been elevating when in bed. Errythema remains in the outlined areas. Afebrile today. Had a dull headache this afternoon and took Tylenol for this. Lung sounds clear, bowel sounds active. LBM 5/13 per patient. PIV patent and intact. Alert and oriented. Tolerating a regular diet. Remains on IV antibiotics. Right leg blister opened today after shower. Wound culture and wound viral swab were obtained from open area on leg and sent to lab. Dressing applied to leg after this.
[2023-10-24] MEDS: 0.9 % SODIUM CHLORIDE 250 ml IV (14:27)
[2023-10-24] MEDS: IBUPROFEN 400 MG TABLET PO (15:47)
--- NOTE | 2023-10-24 22:58 | PC.NURSE ---
End of Shift: Patient pleasant and cooperative. Afebrile. Redness to left lower leg decreasing from outline, elevated. C/o headache 3/ and PRN Ibuprofen given x1. Tolerating regular diet with no nausea.
[2023-10-25 04:30] VITALS: BP 128/94; PULSE 75; RESP 16; TEMP 36.5; O2SAT 95
[2023-10-25 06:47] LABS: Basophils Absolute Auto 0.04 K/uL (0.00-0.30); Basophils Percent Auto 0.5 % (0.0-3.0); Eosinophils Absolute Auto 0.16 K/uL (0.00-0.50); Eosinophils Percent Auto 2.1 % (0.0-7.0); Hematocrit 44.1 % (37.0-53.0); Hemoglobin* 14.7 gm/dL (13.5-17.5); Immature Granulocytes Pct Auto 1.3 %; Lymphocytes Absolute Auto 1.72 K/uL (0.90-2.90); Lymphocytes Percent Auto 22.7 % (20-44); Mean Corpuscular HGB Conc 33 gm/dL (32-36); Mean Corpuscular Hemoglobin 30 pg (26-34); Mean Corpuscular Volume 91 fL (80-100); Monocytes Percent Auto 10.7 % (0.0-11.0); Neutrophils Absolute Auto 4.76 K/uL (1.7-7.0); Neutrophils Percent Auto 62.7 % (42.0-72.0); Platelet Count* 288 K/uL (140-440); RDW Coefficient of Variation % 13.2 % (11.5-15.5); Red Blood Count 4.85 m/uL (4.30-5.90); White Blood Count* 7.59 K/uL (4.50-11.00)
--- NOTE | 2023-10-25 06:53 | PC.NURSE ---
Pt is alert and oriented x3. Afebrile. VSS. Pt denies pain, chest pain, SOB, N/V. Pt?s right leg cellulitis is outlined and redness is receding. Pt is up ad sissy in room, tolerating regular diet and voiding. Pt slept throughout most of night. ??
[2023-10-25 06:55] LABS: Slide Review Reflex No
[2023-10-25 07:00] VITALS: BP 127/88; PULSE 90; RESP 16; TEMP 36.6; O2SAT 97
[2023-10-25] MEDS: CEFAZOLIN 1 GM in 0.9 % SODIUM CHLORIDE Mini-bag 100 ML IVPB (07:34)
[2023-10-25 07:39] LABS: C Reactive Protein* 12.1 mg/dL (0.5-1.0)
--- NOTE | 2023-10-25 10:05 | US_ITS ---
Patient: HERMAN MCBRIDE Facility:?[facility] Patient ID:?[id number] Site Patient ID:?[id number]. Site :?[id number] Study:?US-Extremity Right LEV-10/25/2023 10:41:30 AM Ordering Physician:ADIA FREIRE Final Report: INDICATION: Rule out DVT. (Sic) No other indication provided. COMPARISON: None available. TECHNIQUE: Static and compression grayscale and spectral (including color) Doppler ultrasound of the right lower extremity. FINDINGS: Deep veins: The right common femoral, deep femoral, superficial femoral, popliteal, posterior tibial, peroneal and contralateral left common femoral veins are patent and free of clot. Superficial veins: The imaged right great saphenous vein is patent and free of clot. Extravascular findings: No significant incidental findings. IMPRESSION: No evidence of DVT in the right lower extremity. Dictated by Luis Fernando Abraham MD @ 10/25/2023 10:50:37 AM ----- ADDENDUM ----- ADDENDUM: Additional clinical history as follows: Right lower extremity swelling and erythema. Dictated by Luis Fernando Abraham MD @ Oct 25 2023 10:51AM Signed by:?Luis Fernando Abraham MD @10/25/2023 10:50:37 AM (Electronic Signature)
--- NOTE | 2023-10-25 10:39 | P.DS_ITS ---
DS: Providers Provider Date Seen: 10/25/23 Date of admission: 10/23/23 16:28 Primary care physician: Not a Local Provider Admitting Clinician: David Arriaga MD Attending Physician on discharge: Keshia Anderson MD Date of Discharge: 10/25/23 DS: Diagnosis Discharge Diagnosis (1) Cellulitis: Status: Acute Problem details: - RLE, initially treated with IV Vancomycin x1 + oral Doxycycline ([place] [facility] on 10/21), worsened in the 24 hours prior to admission - BCx exhibit NGTD, wound cultures pending - treated with IV Ancef with good relief, discharge home with oral Keflex on 10/24 DS: Summary Hospital Course Hospital Course: 38-year-old male admitted to the hospital for lower extremity cellulitis after failing outpatient treatment with oral Doxycycline. On admission, elevated temperature of 99, elevated CRP, normal WBC. Blood cultures remained negative throughout stay, lower extremity ultrasound negative for DVT. Treated with IV Cefazolin with good results, medically appropriate for discharge home on 10/24. He will be sent home on oral Keflex with recommended PCP follow-up. Status at Discharge Functional status at discharge: independent ambulation Overall status at discharge: patient is progressing back to baseline Time Spent with Patient Time attestation: Total time spent providing and/or coordinating discharge services: Time spent: Greater than 30 minutes Specific discharge activities: Medication reconciliation, results review, Education Exam Narrative: Exam Narrative: GEN: Alert and oriented, sitting comfortably in bedside chair, nontoxic HEENT: EOMIs bilaterally, no scleral icterus CV: RRR, No concerning murmurs R: LCTA bilaterally without concerning wheezing, air movement adequate Ext: mild edema RLE, mildly + Van's sign Skin: Erythema of RLE continues to improve, noted circumferentially over ankle region with + caudal spread, not contained within a dermatome. Vesicles cultured yesterday Neuro: No focal deficits, normal peripheral pulses and capillary refill Psych: Appropriate Const: Vital Signs, click to edit/add: Vital Signs - 24 hr 10/24/23 11:00 10/24/23 13:30 10/24/23 15:00 Temperature 97.5 F L 98.4 F 98.3 F Pulse Rate [Left P ulse Oximeter] 102 H 90 Respiratory Rate 16 16 Blood Pressure [Le ft Arm] 120/79 Blood Pressure [Ri ght Arm] 135/90 H Pulse Oximetry 94 93 Oxygen Delivery Me thod Room Air Room Air 10/24/23 15:00 10/24/23 19:00 10/24/23 23:40 Temperature 97.7 F Pulse Rate [Left P ulse Oximeter] 90 58 L Respiratory Rate 16 16 16 Blood Pressure [Le ft Arm] 133/90 H Blood Pressure [Ri ght Arm] Pulse Oximetry 94 Oxygen Delivery Me thod Room Air 10/25/23 04:30 10/25/23 07:00 Temperature 97.7 F 97.9 F Pulse Rate [Left P ulse Oximeter] 75 90 Respiratory Rate 16 16 Blood Pressure [Le ft Arm] 128/94 H 127/88 Blood Pressure [Ri ght Arm] Pulse Oximetry 95 97 Oxygen Delivery Me thod Room Air DS: Data Data Completed and Pending Completed studies during hospitalization: Procedures Introduction of Other Gas into Respiratory Tract, Via Natural or Artificial Opening (03/10/23) Resection of Gallbladder, Percutaneous Endoscopic Approach (03/10/23) Labs on day of discharge: Labs from last 24 hours 10/25/23 06:10 WBC 7.59 RBC 4.85 Hgb 14.7 Hct 44.1 MCV 91 MCH 30 MCHC 33 RDW Coeff of Vicky 13.2 Plt Count 288 Neut % (Auto) 62.7 Lymph % (Auto) 22.7 [place] % (Auto) 10.7 Eos % (Auto) 2.1 Baso % (Auto) 0.5 Neut # (Auto) 4.76 Lymph # (Auto) 1.72 [place] # (Auto) 0.80 Eos # (Auto) 0.16 Baso # (Auto) 0.04 Abs Immat Gran (auto) 0.10 Imm/Tot Granulo (auto) 1.3 C-Reactive Protein 12.1 H Preliminary micro results at discharge 10/23/23 16:14 Blood Culture - Preliminary Blood NO GROWTH AFTER 24 HOURS 10/23/23 15:50 Blood Culture - Preliminary Blood NO GROWTH AFTER 24 HOURS Discharge Plan Discharge Disposition: Home, Self-Care Date of Admission: 10/23/23 16:28 Attending Provider on Discharge: Keshia Anderson Primary Care Provider: Provider,Not a Local Condition: Improved Anticipated Discharge Date/Time: 10/25/23 10:06 Discharge Medications: New cephalexin 500 mg capsule 500 mg PO TID 7 Days Qty: 21 0RF Continued methylphenidate HCl [Concerta] 36 mg tablet extended release 24hr 36 mg PO DAILY loratadine [Allerclear] 10 mg tablet 10 mg PO DAILY PRN Discontinued doxycycline monohydrate 100 mg tablet 100 mg PO BID Discharge Orders: Discharge Order (Routine); Ordered 10/25/23 Ordered By: Keshia Anderson Patient Education: Cephalexin (By mouth), Cellulitis (GEN) Additional Instructions: Take antibiotics as prescribed (with probiotic daily), sent to [facility] Good idea to establish care with a PCP in [place] ([place] [facility] is a great option!) and see them next week for a hospital followup. Activity Level: Activity as Tolerated Discharge Diet: Regular Follow Up Appointments: Provider,Not a Local [Primary Care Provider] - Forms: [facility] Info Instructions
--- NOTE | 2023-10-25 13:15 | PC.NURSE ---
Patient VSS. Independent in room. Tolerated a regular diet. Cellulitis receding in right leg. No complaints of pain or SOB. Took a shower independently. Ultrasound completed prior to discharge. No DVT noted. Discharged to home at 1210, accompanied by girlfriend. IV removed and intact. Discharge instructions given and signed.
== END 2023-10-25 12:10 | disposition home or self-care (01) | DRG 383 ==
LOC: ED 15:46 → MEDSURG 16:24
PROVIDERS: Family Medicine; Admitting Provider Family Medicine; Emergency Provider Emergency Medicine Emergency Medical Services; Visit Provider Family Medicine
DX: L03.115 Cellulitis of right lower limb (principal)
CPT/HCPCS: 36415; 83605; 84145; 85025; 86140; 87040; 87070; 87205; 87252; 93971; 99284; A9270; J0690; J0696; J7050

== ENCOUNTER 2024-02-23 19:13 | Emergency (ER) | payer BC, SELFPAY ==
[2024-02-23] VITALS (13 sets, daily range): BP systolic 107–157; BP diastolic 80–111; PULSE 79–97; RESP 18; TEMP 36.4; O2SAT 95–100; BMI 28.3
--- NOTE | 2024-02-23 19:24 | ED.GENADULT ---
HPI - General Adult General Chief complaint: Fall/Minor Trauma Stated complaint: Ejected from horse Time Seen by Provider: 02/23/24 19:14 History of Present Illness HPI narrative: Patient jumped off a horse on a gravel road when the horse was getting agitated and changing its trot. No neck pain, no LOC. Left shoulder pain and abrasion to back of left forearm. Obvious injury to right hand and right thumb pain. 38-year-old man presenting to the emergency department following a jump/fall from a horse. His 2nd time on a horse and sounds like source picked up speed. Uncomfortable he decided to jump. Did not hit his head, there is no neck or back pain. No loss of consciousness. It pain in particular in the left shoulder such that does not have the strength to lift to shoulder very well. Is noted to have sustained abrasions over his chest and the side on the left. Is also noted to have blood on the bed sheets which I follow to abrasions and hole in the skin of his elbow. Denies abdominal pain. Was able to ambulate into the emergency department. Do note an abrasion of left knee which does not appear to bother him. Also has noted deformity specifically to the thumb and abrasions about the right hand. Related Data Home Medications ?Medication ?Instructions ?Recorded ?Confirmed loratadine 10 mg tablet 10 mg PO DAILY PRN 03/10/23 10/24/23 (Allerclear) methylphenidate HCl 36 mg 36 mg PO DAILY 03/10/23 10/24/23 tablet,extended release 24 hr (Concerta) Allergies Allergy/AdvReac Type Severity Reaction Status Date / Time amphetamine [From Adderall] Allergy Verified 03/10/23 07:14 dextroamphetamine Allergy Verified 03/10/23 07:14 [From Adderall] Review of Systems Status of ROS: Reports: 6 or more systems reviewed and unremarkable except as noted in History and below [facility] Medical History Acute cholecystitis ?K81.0 - Acute cholecystitis (ICD-10) Gallstone pancreatitis ?K85.10 - Biliary acute pancreatitis without necrosis or infection (ICD-10) Broken nose ?S02.2XXA - Fracture of nasal bones, initial encounter for closed fracture (ICD-10) Marijuana use ?F12.90 - Cannabis use, unspecified, uncomplicated (ICD-10) History of tobacco use ?Z87.891 - Personal history of nicotine dependence (ICD-10) Attention deficit hyperactivity disorder (ADHD) ?F90.9 - Attention-deficit hyperactivity disorder, unspecified type (ICD-10) Surgical History History of placement of ear tubes ?Z96.22 - Myringotomy tube(s) status (ICD-10) Social History Narrative: 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 He rarely does heavy lifting. He does not smoke or drink. Occasional cannabis use. What is your current living situation?: I presently have a place to live Problems where you live: no known problems Problems where you live details: no known problems In the past 12 months, utilities in danger of being shut off: no In past 12 months, lack of transportation kept you from medical appts, meetings, work, or getting things needed for daily living: no In the past 12 mos, have been you worried that your food would run out before you had money to buy more?: never true In the past 12 mos, the food you bought just didn't last and you didn't have money to buy more?: never true Highest level of school completed/degree received: some college, no degree Smoking Status: Former smoker Do you use any of these nicotine containing products: None Second hand tobacco smoke exposure: No How often do you have a drink containing alcohol: never How many standard drinks containing alcohol do you have on a typical day: 1 or 2 How often do you have six or more drinks on one occasion: Monthly AUDIT-C Alcohol total score: 2 Non-prescribed substance use: marijuana (any form) Caffeine: No How often does anyone, including family, friends and others, physically hurt you: never How often does anyone, including family, friends and others, insult or talk down to you: never How often does anyone, including family, friends and others, threaten you with harm: never How often does anyone, including family, friends and others, scream or curse at you: never service: No Exam Narrative: Exam Narrative: Pleasant. Energetic. Cranial nerves 2-12 intact. Pupils show mild dilatation of the right pupil verses the left (evidently this is chronic since an old injury) and briskly reactive. NAD until manipulate the left shoulder in particular. Head is atraumatic. Neck is supple nontender. Back also nontender without deformity. Broad light abrasions over the left side coming around to the side of the abdomen as well. Abdomen is soft and nontender. Lungs appear to be clear with equal expansion excursion. Heart in elevated rate and regular rhythm. No pain to palpation of the clavicles or the AC joint. There is some pain to palpation of posterior aspect of the deltoid but maybe more so posterior lateral. Unable to maintain empty can testing. Really any manipulation of the shoulder joint causes pain. Flexes and extend the elbow though without apparent difficulty. There is abrasion generally over the olecranon of the elbow and extending over the proximal forearm with about 1/2 inch size puncture/abrasion over the medial epicondyle which is oozing some blood. Silver dollar sized abrasion over the left knee without effusion. Flexes and extends without difficulty. The right hand has hyper extended interphalangeal joint. Sensation intact distally. There is a full-thickness abrasion/laceration at the palmar interphalangeal joint of the thumb where I think flexor tendon is visible. On later re-examination apparent that capsule not visible. Suspect this ruptured at apparent dislocation. Total length an inch and half. Similar abrasion that looks to be actually full-thickness semi lunar laceration at the MCP joint palmar side of the index finger as well as at the MCP joint palmar side of the 5th finger; same size. Otherwise smaller abrasions over the hands. Opens and closes all joints in the hand other than is unable to manipulate the interphalangeal joint of the thumb Const: Vital Signs, click to edit/add: Vital Signs - 24 hr 02/23/24 19:22 02/23/24 19:36 02/23/24 19:45 Temperature 97.6 F Pulse Rate 83 94 Pulse Rate [Pulse Oximeter] 97 Respiratory Rate 18 Blood Pressure [Ri ght Upper Arm] 157/111 H Pulse Oximetry 95 95 96 Oxygen Delivery Me thod Room Air 02/23/24 20:00 02/23/24 20:15 02/23/24 20:30 Temperature Pulse Rate 82 85 79 Pulse Rate [Pulse Oximeter] Respiratory Rate Blood Pressure [Ri ght Upper Arm] Pulse Oximetry 97 100 98 Oxygen Delivery Me thod Documenting provider has reviewed patient's vital signs: yes Course Vital Signs Vital signs: Initial Vital Signs Temperature 97.6 F 02/23/24 19:22 Temperature Source Temporal Artery Scan 02/23/24 19:22 Pulse Rate 97 02/23/24 19:22 Respiratory Rate 18 02/23/24 19:22 Blood Pressure 157/111 H 02/23/24 19:22 Blood Pressure Mean 126 H 02/23/24 19:22 Blood Pressure Position Sitting 02/23/24 19:22 Pulse Oximetry 95 02/23/24 19:22 Oxygen Delivery Method Room Air 02/23/24 19:22 Vital Signs Temperature 97.6 F 02/23/24 19:22 Pulse Rate 97 02/23/24 19:22 Respiratory Rate 18 02/23/24 19:22 Blood Pressure 157/111 H 02/23/24 19:22 Pulse Oximetry 95 02/23/24 19:22 Oxygen Delivery Method Room Air 02/23/24 19:22 Temperature 97.6 F 02/23/24 19:22 Pulse Rate 85 02/23/24 21:45 Respiratory Rate 18 02/23/24 19:22 Blood Pressure 107/80 02/23/24 22:50 Pulse Oximetry 95 02/23/24 21:45 Oxygen Delivery Method Room Air 02/23/24 19:22 Medications Administered Medications: Discontinued Medications Generic Name Dose Route Start Last Admin Trade Name Freq PRN Reason Stop Dose Admin Hydrocodone Bitart/Acetaminophen 2 tab 02/23/24 19:40 02/23/24 19:47 Hydrocodone-Acetamin 5-325 Mg 1 Tab PO 02/23/24 19:41 2 tab ONCE ONE Administration Ibuprofen 600 mg 02/23/24 19:40 02/23/24 19:47 Ibuprofen 200 Mg Tablet PO 02/23/24 19:41 600 mg ONCE ONE Administration Medical Decision Making MDM Narrative Medical decision making narrative: Discussed options for pain management. Would ultimately appreciate some pain medication. Given ibuprofen and a couple of tabs of Fairmont. Still with not in significant pain particularly with manipulation of the left shoulder but improved. Otherwise digital block to the thumb with bupivacaine ultimately with full anesthesia achieved. Considering degree of pain pain I would suspect act bony injury to the left shoulder. Does not sound to have struck his head. Is not demonstrating evidence of concussion otherwise. Would image the right hand. I presume a dislocation of the D IP and possible secondary fracture. Flexing standing the elbow on the left without apparent difficulty though I wonder if the shoulder somewhat distracting. Imaging reveals what looks to be by my read a comminuted fracture of the head of the humerus. I do not see/appreciate unusual AC joint or clavicle fracture otherwise. Looks to be in normal alignment in the shoulder. The right thumb is indeed dislocated at the interphalangeal joint; distal phalanx is posterior. Speckling in the area of injury is evident. Consistent with foreign body. There is subtle linear horizontal lucency at the distal aspect of the proximal phalanx in the thumb. During reassessment after full anesthesia achieved of the thumb I did manage to reduce the IP joint with primarily distal traction. Able to flex and extend against resistance at this point. I think tendons indeed intact. Following bleeds more readily as expected. Did repeat x-ray of the right thumb by my read confirms reduced IP joint. Also imaged the left elbow at this point. I do not appreciate any bony abnormality here. Spots of foreign body evident about the wound. Discussed all findings with orthopedics on-call for follow-up. Placed also wound anesthesia with Marcaine in all wounds requiring repair. Incomplete anesthesia ultimately was achieved on the to palmar lacerations but adequate for repair. Following normal saline irrigation under pressure by me, all wounds including right thumb, 2 palmar lacerations and left elbow were repaired with 5 0 interrupted Ethilon sutures. Good wound approximation, control of bleeding achieved. Covered wounds and abrasions with combination of bacitracin, Adaptic, Telfa, Band-Aids, gauze Praveen and Coban. Was placed in arm sling for the left arm. Placed a finger Stax splint on the right thumb. Antibiotic prophylaxis. See patient discharge plan for further discussion Medical Records Medical records reviewed: Yes I reviewed the patient's medical records Discharge Plan Discharge Clinical Impression: Dislocated thumb, Abrasion, Multiple lacerations, Fracture of head of humerus Patient Disposition: Home w/ Parent or Adult Condition: Improved Additional Instructions: Please schedule with orthopedics for this coming week. Wear this splint between just seeing changes until re-evaluated. I would anticipate a call from them on Monday. If you do not hear from them by noon go ahead and call [phone] Wear the sling until follow-up as well. Can remove for bathing as needed. Can change dressings daily. Wash gently with light soap. Whitish yellow growing in is likely granulation tissue. Antibiotic ointment with dressing for 6-7 days. Cover then with dry dressing over sutures. Sutures out in 9-10 days. Okay to get wet but avoid soaking well sutures are in. Report/be seen for increasing/spreading redness after 2 days, marked increase in swelling or pain, fever. Can take ibuprofen or naproxen or acetaminophen for pain. Acetaminophen dosing is up to 1000 mg per dose. Keep in mind that each tablet of Fairmont contains 325 mg of acetaminophen. Prescribed some Fairmont from [facility]. Keflex as well from [facility] Prescriptions: No Action methylphenidate HCl [Concerta] 36 mg tablet extended release 24hr 36 mg PO DAILY loratadine [Allerclear] 10 mg tablet 10 mg PO DAILY PRN Follow Up/Referrals: Provider,Not a Local [Primary Care Provider] - Stand Alone Forms: [employer] Info Instructions
--- NOTE | 2024-02-23 19:39 | CRLHL7_ITS ---
For Patients: As a result of the Century Cures Act, medical imaging exams and procedure reports are released immediately into your electronic medical record. You may view this report before your referring provider. If you have questions, please contact your health care provider. Indication: Trauma. Technique: Right hand, 3 views. Comparison: None. Findings/impression: Bones: Dislocation at the 1st interphalangeal joint there is posterior dislocation of the distal phalanx.. No definite acute fractures identified. Joint spaces: Unremarkable. Soft tissues: Soft tissue swelling and radiopaque density that the [place] margin at the level of the 1st interphalangeal joint. Punctate radiopaque densities within this region may reflect foreign bodies.. Dictated by Gerson Rollins MD @ 02/23/2024 8:35:39 PM (Electronically Signed)
--- NOTE | 2024-02-23 19:39 | CRLHL7_ITS ---
For Patients: As a result of the Cures Act, medical imaging exams and procedure reports are released immediately into your electronic medical record. You may view this report before your referring provider. If you have questions, please contact your health care provider. Indication: Trauma. Technique: Left shoulder, 3 views. Comparison: None. Findings: Bones: Comminuted fracture of the humeral head. There is likely extension to the articular surface of the glenohumeral joint.. Joint spaces: AC joint is unremarkable.. Soft tissues: Soft tissue swelling surrounding the fracture site.. Impression: Comminuted fracture of the humeral head. Dictated by Gerson Rollins MD @ 02/23/2024 8:37:00 PM (Electronically Signed)
[2024-02-23] MEDS: HYDROCODONE-ACETAMIN 5-325 MG 1 TAB 2 TAB PO (19:47)
[2024-02-23] MEDS: IBUPROFEN 200 MG TABLET 600 MG PO (19:47)
--- NOTE | 2024-02-23 20:42 | CRLHL7_ITS ---
For Patients: As a result of the Cures Act, medical imaging exams and procedure reports are released immediately into your electronic medical record. You may view this report before your referring provider. If you have questions, please contact your health care provider. Indication: Pain Technique: Three views of the left elbow Comparison: None Findings/Impression: Radiopaque foreign bodies noted along the soft tissues of the elbow. No acute fracture or dislocation appreciated. Dictated by Bj Cloud MD @ 02/23/2024 10:05:27 PM (Electronically Signed)
--- NOTE | 2024-02-23 20:42 | CRLHL7_ITS ---
For Patients: As a result of the Century Cures Act, medical imaging exams and procedure reports are released immediately into your electronic medical record. You may view this report before your referring provider. If you have questions, please contact your health care provider. Indication: Postreduction. Technique: Right thumb 3 views. Comparison: Right hand radiographs dated 02/23/2024. Findings/Impression: Improved postreduction alignment of the thumb interphalangeal joint, which is now anatomic. No postreduction fracture. Redemonstrated soft tissue hyperdensity along the ulnar aspect of the thumb interphalangeal joint. Dictated by Arturo Cleaning MD @ 02/23/2024 10:06:47 PM (Electronically Signed)
== END 2024-02-23 23:51 | disposition home or self-care (01) ==
PROVIDERS: Emergency Provider Family Medicine
DX: S42.302A Unspecified fracture of shaft of humerus, left arm, initial encounter for closed fracture (principal); S51.012A Laceration without foreign body of left elbow, initial encounter; S63.121A Subluxation of interphalangeal joint of right thumb, initial encounter; V80.010A Animal-rider injured by fall from or being thrown from horse in noncollision accident, initial encounter
CPT/HCPCS: 26775; 73030; 73070; 73130; 73140; 94761; 99284; A9270